=== PATIENT | female | born 1945 | race Caucasian/White ===

== ENCOUNTER 2020-03-06 17:11 | Inpatient (IN) | payer MEDICARE, SELFPAY ==
[2020-03-06] VITALS (33 sets, daily range): BP systolic 96–167; BP diastolic 59–88; PULSE 68–104; RESP 12–37; TEMP 36.4–38.1; O2SAT 88–99; BMI 32.5
--- NOTE | ~2020-03-06 | MR_ITS ---
EXAMINATION: MR brain/brain stem wo/w con DATE: 03/08/2020 15:08 INDICATION: Syncope. Frequent falls. Acute encephalopathy. TECHNIQUE: Magnetic resonance imaging (MRI) of the brain and brainstem was performed without intraven ous contrast. Sequences included sagittal and axial T1-weighted SE, axial diffusion-weighted FS SE, a xial T2*-weighted GRE and axial T2-weighted FLAIR. Apparent diffusion coefficient (ADC) maps were cre ated. The planned axial T1-weighted FSE, axial T2-weighted FSE and postcontrast axial and coronal T1 -weighted SE sequences were unable to be obtained as patient terminated the study prior to completion . COMPARISON: CT dated 03/06/2020 FINDINGS: Small to moderate-sized region of encephalomalacia with associated laminar necrosis at the medial lef t occipital lobe consistent with chronic infarct. Additional small old lacunar infarcts at the head o f the left caudate nucleus and at the left cerebellar hemisphere. There are no areas of restricted di ffusion to suggest acute infarction. No intracranial hemorrhage or abnormal intracranial mass lesion. There are scattered areas of nonspecific increased T2-weighted signal intensity in the cerebral whit e matter, predominantly involving the deep and periventricular white matter. Symmetric prominence of the sulci and ventricles consistent with moderate age-appropriate diffuse cerebral volume loss. There are no abnormal extra-axial fluid collections. Flow voids are seen in the cerebral arteries on the T 2-weighted sequences consistent with their expected patency. Mild mucosal thickening in the paranasal sinuses. Visualized orbits and soft tissues are otherwise unremarkable. IMPRESSION: 1. No acute infarct or other acute intracranial process. Unable to assess for enhancing lesions as aimee rhodes terminated the study prior to the final 2 noncontrast sequences and before administration of in travenous contrast which mildly limits evaluation. 2. 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 3. Age-related changes including moderate diffuse volume loss and moderate scattered periventricular predominant white matter T2 hyperintensity consistent with chronic small vessel ischemic disease. Reviewed, dictated and finalized at [facility]. PROCESS HELPER IMPRESSION: 1. No acute infarct or other acute intracranial process. Unable to assess for e nhancing lesions as patient terminated the study prior to the final [address] sequences and before administration of intravenous contrast which mildly powell its evaluation. 2. Old infarcts in the left occipital lobe, left caudate nucleus and left cereb ellum. 3. Age-related changes including moderate diffuse volume loss and moderate scat tered periventricular predominant white matter T2 hyperintensity consistent wit h chronic small vessel ischemic disease.
--- NOTE | ~2020-03-06 | US_ITS ---
EXAMINATION: US carotid duplex BI DATE: 03/07/2020 15:23 INDICATION: Syncope. TECHNIQUE: Grayscale, color Doppler, and pulsed Doppler images of the cervical carotid arteries were obtained. The degree of vessel stenosis is placed in one of the following categories: normal, <50%, 5 0-69%, >=70% but less than near-occlusion, near-occlusion, or total occlusion. Note that percent sten osis relative to normal distal artery lumen diameter is indirectly measured from velocity measurement s as described by Anuel, et al. Radiology 2003; 229:340-346. COMPARISON: None. FINDINGS: RIGHT: The right common carotid artery (CCA) peak systolic velocity (PSV) is 46 cm/s. The right internal car otid artery (ICA) PSV is 103 cm/s. The right ICA end-diastolic velocity (EDV) is 19 cm/s. The right I CA/CCA PSV ratio is 2.2. Grayscale and color Doppler images yield an estimate of <50% diameter reduct ion from plaque in the ICA. There is antegrade flow in the right vertebral artery. LEFT: The left CCA PSV is 79 cm/s. The left ICA PSV is 78 cm/s. The left ICA EDV is 21 cm/s. The left ICA/C CA PSV ratio is 1.0. Grayscale and color Doppler images yield an estimate of <50% diameter reduction from plaque in the ICA. There is antegrade flow in the left vertebral artery. IMPRESSION: 1. <50% stenosis in the right internal carotid artery. 2. <50% stenosis in the left internal carotid artery. Reviewed, dictated and finalized at location A. [employer]
--- NOTE | ~2020-03-06 | CT_ITS ---
EXAMINATION: CT brain wo con DATE: 03/06/2020 18:14 INDICATION: Fall with posterior head injury TECHNIQUE: Computed tomography (CT) of the head was performed without intravenous contrast. Sagittal and coronal reconstructions were performed. The mA was adjusted according to patient size. Iterative reconstruction technique was employed. The dose-length product was 681.00 mGy-cm. COMPARISON: head CT dated 02/10/2018 FINDINGS: No fracture. Small to moderate-sized region of encephalomalacia in the left occipital lobe consistent with chronic infarct. Additional small old infarcts at the head of the left caudate nucleus and in t he left cerebellar hemisphere. No acute intracranial hemorrhage, acute infarction or abnormal extra a xial fluid collection. There is moderate scattered white matter hypoattenuation consistent with chron ic small vessel ischemic disease. Symmetric prominence of the sulci and ventricles consistent with m oderate age-appropriate diffuse cerebral volume loss. No mass/mass effect. Mild mucosal thickening in the bilateral ethmoid, sphenoid and right maxillary sinuses. The orbits and mastoid air cells are no rmal. Intracranial calcified cerebral atherosclerosis is noted. IMPRESSION: 1. No fracture or acute intracranial process. 2. 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 3. Age-related changes including moderate diffuse on loss and moderate scattered white matter hypoatt enuation consistent with chronic small vessels ischemic disease. Reviewed, dictated and finalized at location . ERCIAL PLUMBER IMPRESSION: 1. No fracture or acute intracranial process. 2. Old infarcts in the left occipital lobe, left caudate nucleus and left cereb ellum. 3. Age-related changes including moderate diffuse on loss and moderate scattere d white matter hypoattenuation consistent with chronic small vessels ischemic d isease.
--- NOTE | ~2020-03-06 | XR_ITS ---
EXAMINATION: XR chest 1V portable DATE: 03/06/2020 17:54 INDICATION: Shortness of breath and weakness TECHNIQUE: frontal view of the chest was obtained. COMPARISON: None FINDINGS: Subtle opacities at the right midlung zone and at the left lung base. No pulmonary edema, pleural eff usion or pneumothorax. The cardiomediastinal silhouette is normal. Atherosclerotic thoracic aorta. IMPRESSION: 1. Subtle opacities in the right mid and left lower lung zones which could represent atelectasis and/ or pneumonia. Reviewed, dictated and finalized at location H. TH SAFETY INSTRUCTOR IMPRESSION: 1. Subtle opacities in the right mid and left lower lung zones which could repr esent atelectasis and/or pneumonia.
--- NOTE | ~2020-03-06 | XR_ITS ---
EXAMINATION: XR chest 2V DATE: 03/08/2020 14:22 INDICATION: Shortness of breath TECHNIQUE: frontal view of the chest was obtained. COMPARISON: Chest radiograph dated 03/06/2020 FINDINGS: Interval progression of prior opacities in the right mid and left lower lung zone with new opacities in the left mid and right lower lung zones. No pneumothorax or definitive pleural effusion. The cardi omediastinal silhouette is normal. Moderate thoracic spondylosis. IMPRESSION: 1. Worsening bilateral lung disease which could represent pneumonia, ulnar edema, aspiration, atelect asis or some combination thereof. Reviewed, dictated and finalized at location H. T ROLLER ASSEMBLER IMPRESSION: 1. Worsening bilateral lung disease which could represent pneumonia, ulnar sajan a, aspiration, atelectasis or some combination thereof.
--- NOTE | 2020-03-06 17:19 | ECG_ITS ---
Measurements Intervals [place] Rate: 90 P: 36 IA: 149 QRS: -27 QRSD: 98 T: 218 QT: 364 QTc: 446 Interpretive Statements SINUS RHYTHM LEFT VENTRICULAR HYPERTROPHY AND ST-T CHANGE POOR R WAVE PROGRESSION, ANTERIOR LEADS BORDERLINE T WAVE ABNORMALITY- INF/LAT LEADS BASELINE ARTIFACT- II, III, AVF, V1, V3 BORDERLINE ECG Electronically Signed On 03-06-2020 20:20:45 ART THERAPIST by Ryan Skaggs D.O.
--- NOTE | 2020-03-06 17:23 | ED.GENADULT ---
HPI - General Adult General Chief complaint: Shortness of Breath/Dyspnea Stated complaint: sob Time Seen by Provider: 03/06/20 17:14 Source: EMS Mode of arrival: EMS Limitations: clinical condition History of Present Illness HPI narrative: Patient is a 74-year-old female who presents from home per EMS EMS note that the patient has been sick presents with fever and wet breath sounds patient has been at home where she lives with her son who is a truck safety inspector patient reportedly was found on the ground by son yesterday has had increasing weakness and confusion EMS was contacted and instructed to bring the patient to the emergency department on arrival she is in the room appears to be ill with coarse breath sounds and fever patient is unable to fully answer questions appropriately and is alert and oriented to self and very weak at this time. Patient with history of diabetes and hypertension per EMS Related Data Allergies Allergy/AdvReac Type Severity Reaction Status Date / Time acetaminophen Allergy Unknown Rash Verified 02/10/18 14:30 Penicillins Allergy Unknown Rash Verified 02/10/18 14:30 Review of Systems Review of Systems: All systems reviewed & are unremarkable except as noted in HPI and below PMFSH Past Medical History Medical History (Updated 03/06/20 @ 17:26 by Brett Wooten PA-C) Diabetes mellitus Hypertension Social History Social History (Updated 03/06/20 @ 17:26 by Brett Wooten PA-C) Smoking status: Unknown if ever smoked Exam Narrative: Exam Narrative: GENERAL: Ill l-appearing, obese, and in no acute distress. HEAD: Normocephalic, atraumatic. EYES: PERRLA and EOMI. ENT: Nares clear, no rhinorrhea or epistaxis. Mucous membranes moist. NECK: Supple. No adenopathy or masses. No carotid bruits or JVD CHEST: Diminished auscultation. No respiratory distress. Crackles in the lung bases HEART: Regular rate and rhythm. No murmur heard. Normal peripheral pulses. ABDOMEN: Soft, nontender, nondistended EXTREMITIES: Normal range of motion. No edema. SKIN: Warm, dry, no rash. NEURO: No focal deficits. Alert and oriented to self PSYCH: Normal mood and affect.
--- NOTE | 2020-03-06 17:28 | ED.GENADULT ---
HPI - General Adult General Chief complaint: Shortness of Breath/Dyspnea Stated complaint: sob Time Seen by Provider: 03/06/20 17:14 Source: EMS Mode of arrival: EMS Limitations: clinical condition History of Present Illness HPI narrative: Patient is a 74-year-old female who presents for EMS for evaluation of weakness having fallen yesterday noted to have coarse breath sounds and fever patient lives at home with her son who is a forklift truck mechanic with possible sick contacts but is not currently sick per EMS patient with history of diabetes and hypertension on arrival patient is ill-appearing weak and has trouble answering questions is alert and oriented x1. Patient was found on the ground yesterday when her son arrived home. Patient has continued to feel weak and fever and was sent in by son Related Data Home Medications Medication Instructions Recorded Confirmed allopurinol 300 mg TID 03/06/20 citalopram 40 mg DAILY 03/06/20 glipizide 5 mg BID 03/06/20 insulin glargine [Basaglar KwikPen SUBCUT 03/06/20 U-100 Insulin] liraglutide [Victoza 3-Timothy] mg SUBCUT 03/06/20 losartan 100 mg DAILY 03/06/20 metformin 1,000 mg BID 03/06/20 03/06/20 omeprazole 20 mg DAILY 03/06/20 03/06/20 simvastatin 20 mg DAILY 03/06/20 03/06/20 Allergies Allergy/AdvReac Type Severity Reaction Status Date / Time acetaminophen Allergy Unknown Rash Verified 03/06/20 19:34 Penicillins Allergy Unknown Rash Verified 03/06/20 19:34 Review of Systems Review of Systems: ROS unobtainable: Yes unobtainable due to medical condition [facility] Past Medical History Medical History Diabetes mellitus Hypertension Social History Social History Smoking status: Unknown if ever smoked Exam Narrative: Exam Narrative: GENERAL: Ill l-appearing, obese, and in no acute distress. HEAD: Normocephalic, atraumatic. EYES: PERRLA and EOMI. ENT: Nares clear, no rhinorrhea or epistaxis. Mucous membranes dry. NECK: Supple. No adenopathy or masses. CHEST: Clear to auscultation. No respiratory distress. No wheezes rales or rhonchi HEART: Regular rate and rhythm. No murmur heard. Normal peripheral pulses. ABDOMEN: Soft, nontender, nondistended EXTREMITIES: Normal range of motion. No edema. SKIN: Warm, dry, no rash. NEURO: No focal deficits. Alert and oriented to self. PSYCH: Normal mood and affect. Course Course Emergency Course: Patient came and after having had a syncopal episode with weakness patient found to have urinary tract infection and dehydration no old blood work was able to be referenced patient with possible acute kidney injury has been hydrated given IV antibiotic in the emergency department hemodynamically stable will be brought in for further evaluation placed on medical telemetry floor Consultations Consultation #1: Case discussed with the hospitalist service who has agreed to accept the patient Date: 03/06/20 Time: 20:12 Vital Signs Vital signs: Vital Signs Pulse Rate 95 03/06/20 17:14 Respiratory Rate 36 H 03/06/20 17:14 Pulse Oximetry 96 03/06/20 17:14 Temperature 100.5 F H 03/06/20 18:10 Pulse Rate 81 03/06/20 19:31 Respiratory Rate 23 H 03/06/20 19:31 Blood Pressure 116/66 03/06/20 19:31 Pulse Oximetry 94 03/06/20 19:31 Medical Decision Making MDM Narrative Medical decision making narrative: Patient with syncope urinary tract infection acute kidney injury and weakness will be brought into the hospital for this patient has been hydrated given IV antibiotic is hemodynamically stable nontoxic-appearing Vital Signs Vital Signs: Vital Signs Pulse Rate 95 03/06/20 17:14 Respiratory Rate 36 H 03/06/20 17:14 Pulse Oximetry 96 03/06/20 17:14 Temperature 100.5 F H 03/06/20 18:10 Pulse Rate 81 03/06/20 19:31 Respiratory Rate 23 H 03/06/20 19:31 Blood Pressure 116/66 03/06/20 19
[2020-03-06] MEDS: SODIUM CHLORIDE 0.9% IV 500 ML 999 ML IV CONT (17:50)
[2020-03-06 17:57] LABS: Basophils Percent Auto 0.4 % (0.2-1.2); Hematocrit 44.6 % (37.0-47.0); Hemoglobin 14.9 g/dL (12.0-15.0); Immature Granulocyte Absolute 0.01 K/mm3 (0.00-0.031); Immature Granulocyte Percent A 0.2 % (0-0.5); Lymphocytes Percent Auto 30.7 % (18.3-44.2); Mean Corpuscular HGB Conc 33.4 g/dl (32-36); Mean Corpuscular Hemoglobin 29.5 pg (26-34); Mean Corpuscular Volume 88.3 fl (80-100); Mean Platelet Volume 9.7 fl (7.4-10.4); Monocytes Absolute Auto 0.9 K/mm3 (0.1-0.6); Monocytes Percent Auto 19.5 % (2.6-8.5); Neutrophils Absolute Auto 2.2 K/mm3 (1.3-6.7); Neutrophils Percent Auto 49.2 % (45.5-73.1); Platelet Count Result 263 k/mm3 (150-375); Red Blood Count 5.05 M/mm3 (4.2-5.4); Red Cell Distribution Width 12.8 % (11.5-14.5); White Blood Count 4.6 K/mm3 (4.5-10.0)
[2020-03-06 18:04] LABS: INR 0.9
[2020-03-06 18:05] LABS: Lactic Acid Reflex 2.2 mmol/L (0.7-2.1)
[2020-03-06 18:05] LABS: Partial Thromboplastin Time 28.3 SECONDS (22.3-36.8)
[2020-03-06 18:06] LABS: Alanine Aminotransferase 19 U/L (4-35); Albumin Level 4.2 g/dL (3.5-5.1); Alkaline Phosphatase 71 U/L (38-126); Anion Gap 13 mmol/L (8-16); Aspartate Amino Transferase 31 U/L (14-36); Bilirubin,Total 0.4 mg/dL (0.2-1.3); Blood Urea Nitrogen 39 mg/dL (7-17); CRP 4.4 mg/dL (<1.0); Calcium 8.9 mg/dL (8.4-10.2); Carbon Dioxide 21 mmol/L (22-30); Chloride 105 mmol/L (98-107); Estimated Glomerular Filt Rate 34; Glucose 179 mg/dL (65-105); Potassium 4.4 mmol/L (3.4-5.0); Sodium 139 mmol/L (137-145)
[2020-03-06] MEDS: IBUPROFEN IV 400 MG in SODIUM CHLORIDE 0.9% IV 100 ML 200 MG IVPB (18:10)
[2020-03-06 18:41] LABS: Alveolar/Arterial O2 Gradient 40.9 mmHg; Base Excess ABG -4.1 mEq/l (+/-2.0); Fractional Inspired Oxygen 21 %; HCO3 ABG 19.7 mEq/l (22.0-26.0); Methemoglobin ABG 0.3 %THb (0-1.5); Oxygen Saturation ABG 94.2 % (95.0-100.0); Oxyhemoglobin 92.6 % THb (90.0-100.0); PCO2 ABG 32.6 mmHg (35.0-45.0); PO2 ABG 69.8 mmHg (80.0-100.0); PO2 FiO2 Ratio Arterial Blood 3.32 %; Reduced Hemoglobin 7.1 %THb (0-5.0); Total Hemoglobin 14.6 g/dL (12.0-18.0); pH ABG 7.399 (7.350-7.450)
[2020-03-06 18:42] LABS: Device ROOM AIR; Site Drawn LEFT BRACHIAL
[2020-03-06 19:23] LABS: Creatine Kinase 50 U/L (30-135)
[2020-03-06] MEDS: SODIUM CHLORIDE 0.9% IV 1,000 ML 999 ML IV CONT (19:25)
[2020-03-06 19:33] LABS: NT Pro B Type Natriuretic Pept 1070 PG/ML (5-100)
--- NOTE | 2020-03-06 19:37 | PC.NURSE ---
IVF started. flu swab done. home meds updated. patient's son in room. patient at same neuro status. A/O x 1-2. no distress. on recyclable products sorter. will bladder scan patient after IVF done prior to 2nd straight cath. both aware of plan.
[2020-03-06 19:41] LABS: Add Urine Microscopic? YES; Appearance Urine Cloudy (Clear); Bacteria Urine 4+ /hpf; Bilirubin Urine Negative (Negative); Blood Urine 1+ (Negative); Color Urine Yellow (Yellow); Glucose Urine UA Negative (Negative); Ketones Urine Negative (Negative); Leukocyte Esterase Ur 2+ LEU/UL (Negative); Mucus Urine Heavy /lpf; Nitrate Urine Negative (Negative); Protein Urine 2+ mg/dL (Negative); Specific Grav Ur 1.017 (1.001-1.035); Squamous Epithelial Cell Urine Rare /hpf (Few); Urobilinogen Urine Negative mg/dL (<2.0); WBC Clumps Urine Present /HPF; WBC Urine 51-75 /hpf
--- NOTE | 2020-03-06 19:45 | PC.NURSE ---
all tests resulted. planning for admission. waiting for bed assignment upstairs.
[2020-03-06] MEDS: ONDANSETRON INJ 4 MG/2 ML VIAL IV PUSH (20:30)
[2020-03-06 20:50] LABS: Reflex Lactic Acid Yes or No Add Lactic
--- NOTE | 2020-03-06 20:50 | PM.IMHP ---
H&P: HPI History of Present Illness Date/Time: 03/06/20 20:50 Chief complaint: Syncope/acute kidney injury/dehydration/UTI Narrative: This is a pleasant 74-year-old obese diabetic female who is known to live with her son and who has recently had multiple falls presented to the hospital for evaluation of generalized weakness, acute confusion, and possible syncopal episode yesterday. The patient herself is somewhat confused tonight but is oriented to herself. Her son tells me that yesterday while he was at work she fell and it is unknown if she passed out or not but apparently she spent 8 hours on the ground as she was too weak to get herself up. She has had multiple recent falls and every time she fall she is too weak to pull herself up and her son is also having difficulty getting her up off the floor. Her son reports that she had fever about 4 days ago with diaphoresis when the fever broke. The patient has a chronic cough which has not changed recently. Tonight on my encounter with the patient she denies any headache, blurry vision, shortness of breath, wheezing, chest pain, palpitations, abdominal pain, nausea, vomiting, diarrhea, rectal bleeding, lower extremity swelling, or focal neurological deficits. The patient was evaluated emergency room this evening and found to be septic with tachypnea and an elevated lactic acid of 2.2. She was also found to be dehydrated, in acute renal failure, with a grossly abnormal urinalysis. The patient was treated with IV fluids and IV antibiotics. Brain CT obtained in the ER was unremarkable for acute pathology. We been asked admit the patient to the hospital for further care and she has no other complaints at this time. The patient was swabbed for COVID-19. Review of Systems Review of Systems: All systems reviewed & are unremarkable except as noted in HPI and below PMFSH Past Medical History Medical History Diabetes mellitus GERD (gastroesophageal reflux disease) Gout Hypertension Family History Family History Father Muscular dystrophy Social History Social History Smoking status: Unknown if ever smoked Alcohol intake: never Substance use: never Gender identity (if verbalized by the patient): Female Spiritual care concerns: No Comments Past surgical history is reviewed and noncontributory. Meds Home Medications and Allergies Home Medications Medication Instructions Recorded Confirmed Type allopurinol 300 mg PO DAILY 03/06/20 03/06/20 History aspirin [Adult Low Dose Aspirin] 81 mg PO DAILY 03/06/20 03/06/20 History citalopram 40 mg PO DAILY 03/06/20 03/06/20 History glipizide 5 mg PO DAILY 03/06/20 03/06/20 History insulin glargine [Basaglar KwikPen 40 unit SUBCUT HS 03/06/20 03/06/20 History U-100 Insulin] liraglutide [Victoza 3-Timothy] 0.6 mg SUBCUT HS 03/06/20 03/06/20 History losartan 100 mg PO DAILY 03/06/20 03/06/20 History metformin 1,000 mg PO BID 03/06/20 03/06/20 History omeprazole 20 mg PO DAILY 03/06/20 03/06/20 History simvastatin 20 mg PO DAILY 03/06/20 03/06/20 History tolterodine 2 mg PO DAILY 03/06/20 03/06/20 History venlafaxine 37.5 mg PO DAILY 03/06/20 03/06/20 History Allergies Allergy/AdvReac Type Severity Reaction Status Date / Time acetaminophen Allergy Unknown Rash Verified 03/07/20 00:37 Penicillins Allergy Unknown Rash Verified 03/07/20 00:37 Vital Signs Vital Signs - 24 hr 03/06/20 17:14 03/06/20 17:15 03/06/20 17:16 Temperature Pulse Rate 95 94 91 Respiratory Rate 36 H 37 H 37 H Blood Pressure 167/80 H Pulse Oximetry 96 96 96 03/06/20 17:20 03/06/20 17:30 03/06/20 17:43 Temperature Pulse Rate 90 84 87 Respiratory Rate 30 H 23 H Blood Pressure 164/88 H Pulse Oximetry 96 03/06/20 17:57 03/06/20 18:00 03/06/20 18:10 Temperature 38.1 C H Pulse
[2020-03-06] MEDS: FAMOTIDINE 20 MG/2 ML VIAL IV PUSH (21:33)
--- NOTE | 2020-03-06 21:40 | PC.NURSE ---
report given to Anne MORIN on 3rd floor. patient to transport to [facility] via film technician and stretcher. more alert. no needs prior to transfer.
[2020-03-06 23:15] LABS: Lactic Acid 0.9 mmol/L (0.7-2.1)
[2020-03-06] MEDS: LACTATED RINGERS 1,000 ML 100 ML IV CONT (23:26)
[2020-03-07] VITALS (10 sets, daily range): BP systolic 110–179; BP diastolic 49–95; PULSE 60–110; RESP 16–26; TEMP 36.1–38.3; O2SAT 90–98; BMI 32.5
[2020-03-07] MEDS: IBUPROFEN 400 MG TABLET PO (05:13)
--- NOTE | 2020-03-07 05:41 | PC.NURSE ---
This patient, Akbar Elizondo, was admitted to [facility] Surg Room 316-01 at 2150. Patient/family oriented to hospital policies and general routines including ID bracelet, bed and alarms, visiting hours, pain management, procedures, bathroom and other care routines, personal items, smoking policy, room service/diet, and visiting hours. Information on how to activate the Rapid Response Team has been discussed. Patient/Family are encouraged to report perceived risks to care and to ask questions if they do not understand what they are told or what they should do.
[2020-03-07 06:34] LABS: Basophils Percent Auto 0.2 % (0.2-1.2); Hematocrit 36.1 % (37.0-47.0); Hemoglobin 11.9 g/dL (12.0-15.0); Immature Granulocyte Absolute 0.02 K/mm3 (0.00-0.031); Immature Granulocyte Percent A 0.4 % (0-0.5); Lymphocytes Absolute Auto 1.03 K/mm3 (0.9-3.2); Lymphocytes Percent Auto 22.2 % (18.3-44.2); Mean Platelet Volume 9.9 fl (7.4-10.4); Monocytes Absolute Auto 0.6 K/mm3 (0.1-0.6); Monocytes Percent Auto 13.1 % (2.6-8.5); Neutrophils Percent Auto 64.1 % (45.5-73.1); Platelet Count Result 186 k/mm3 (150-375); Red Cell Distribution Width 12.7 % (11.5-14.5); White Blood Count 4.6 K/mm3 (4.5-10.0)
[2020-03-07 06:43] LABS: Anion Gap 8 mmol/L (8-16); Blood Urea Nitrogen 35 mg/dL (7-17); Calcium 7.9 mg/dL (8.4-10.2); Carbon Dioxide 22 mmol/L (22-30); Chloride 109 mmol/L (98-107); Estimated CRCL calculation 36 ml/min; Estimated Glomerular Filt Rate 40; Glucose 129 mg/dL (65-105); Potassium 4.1 mmol/L (3.4-5.0); Sodium 139 mmol/L (137-145)
[2020-03-07 07:47] LABS: Folic Acid 6.9 ng/mL (2.76->20)
[2020-03-07] MEDS: CITALOPRAM HYDROBROMIDE 20 MG TABLET 40 MG PO (09:54)
[2020-03-07] MEDS: SIMVASTATIN 20 MG TABLET PO (09:54)
[2020-03-07] MEDS: ASPIRIN 81 MG CHEWABLE TABLET PO (09:54)
[2020-03-07] MEDS: PANTOPRAZOLE 40 MG TABLET PO (09:54)
[2020-03-07] MEDS: allopurinoL 300 MG TABLET PO (09:54)
[2020-03-07] MEDS: FAMOTIDINE 20 MG/2 ML VIAL IV PUSH ×2 (09:55→20:50)
[2020-03-07] MEDS: LACTATED RINGERS 1,000 ML 100 ML IV CONT ×2 (09:58→20:50)
[2020-03-07 10:08] LABS: Glucose Point of Care 115 (65-105)
--- NOTE | 2020-03-07 12:59 | PM.IMPN ---
Progress Note: A&P Assessment and Plan (1) Acute encephalopathy: Code(s): G93.40 - Encephalopathy, unspecified Status: Acute Assessment and Plan: [place] to be likely secondary to UTI and dehydration. CT brain unremarkable for acute intracranial process, although old infarcts in the left occipital lobe, left caudate nucleus and left cerebellum noted as well; this was not seen on brain CT 2 years ago. TSH, B12, Folate WNL. Will continue with neurochecks. Continue treatment for UTI. Given Ct findings of old CVA that were not shown on imaging 2 years ago, it may be prudent to proceed with CVA work up with brain MRI, carotid duplex, and echo. Will obtain Lipid panel as well Consider Neuro consult if no improvement (2) Urinary tract infection: Code(s): N39.0 - Urinary tract infection, site not specified Status: Acute Assessment and Plan: U suspicious for UTI. UCx pending. IV Rocephin started from the ED which she appears to be tolerating well given penicillin allergy Continue IV antibiotics. Tailor antibiotics to culture Avoid acetaminophen as the patient has a known allergy to this. Use Ibuprofen sparingly given JOSE ALFREDO Monitor for improvement (3) Acute kidney injury: Code(s): N17.9 - Acute kidney failure, unspecified Status: Acute Assessment and Plan: Cr 1.50 on arrival; improved to 1.30 today. Likely pre renal and secondary to dehydration. Monitor renal function. Continue IV fluids Renally dose medications. Avoid nephrotoxic agents. (4) Dehydration: Code(s): E86.0 - Dehydration Status: Acute Assessment and Plan: Likely poor PO intake secondary to suspected UTI Continue IV fluids for now. D/c if having improved PO intake Monitor urine output and vital signs closely. (5) Elevated lactic acid level: Code(s): R79.89 - Other specified abnormal findings of blood chemistry Status: Resolved Assessment and Plan: Likely secondary dehydration and UTI. Lactic Acid now WNL (6) GERD (gastroesophageal reflux disease): Qualifiers: Esophagitis presence: esophagitis presence not specified Qualified Code(s): K21.9 - Gastro-esophageal reflux disease without esophagitis Code(s): K21.9 - Gastro-esophageal reflux disease without esophagitis Status: Chronic Assessment and Plan: Continue home PPI therapy (7) Fall: Qualifiers: Encounter type: initial encounter Qualified Code(s): W19.XXXA - Unspecified fall, initial encounter Code(s): W19.XXXA - Unspecified fall, initial encounter Status: Acute Assessment and Plan: Patient's acute falls likely secondary to acute encephalopathy and UTI as well as possible dehydration vs less likely acute stroke as noted above. It is unknown whether not the patient actually syncopized. The patient has no focal neurological deficits at this time. Continue Telemetry. Obtain Echo Continue treatment of UTI. Check orthostatic vitals. Continue IV fluids. PT OT (8) Diabetes mellitus: Qualifiers: Diabetes mellitus type: type 2 Diabetes mellitus chaplain resident insulin use: with chaplain resident use Diabetes mellitus complication status: without complication Qualified Code(s): E11.9 - Type 2 diabetes mellitus without complications; Z79.4 - bench chemist (current) use of insulin Code(s): E11.9 - Type 2 diabetes mellitus without complications Status: Chronic Assessment and Plan: BGL well controlled in low 100s today Accu-Cheks, sliding scale insulin coverage, hypoglycemia protocol. Continue home insulin Hold glipizide, victoza, metformin for now
[2020-03-07] MEDS: INSULIN ASPART (*BKC) 100 UNITS/ML SUB-Q (13:06)
[2020-03-07 13:33] LABS: Glucose Point of Care 223 (65-105)
[2020-03-07] MEDS: ONDANSETRON INJ 4 MG/2 ML VIAL IV PUSH (17:58)
--- NOTE | 2020-03-07 18:03 | PC.NURSE ---
Patient found to have emesis on her face and gown. Vital signs and glucose obtained. 178/87, 104, 26, 90% on room air, 100.3, BS 131. Dr. Go Notified. Patient given Zofran for nausea. See MAR. Per Dr. Go, continue to monitor temperature. Pt unable to have Tylenol due to allergy. Patient A&Ox1.
[2020-03-07 18:48] LABS: Glucose Point of Care 131 (65-105)
[2020-03-07 19:25] LABS: SARS-CoV-2 RNA PCR Positive
[2020-03-07] MEDS: INSULIN GLARGINE (*BKC) 100 UNITS/ML 40 UNITS SUB-Q (20:49)
[2020-03-07 21:27] LABS: Glucose Point of Care 172 (65-105)
[2020-03-07] MEDS: hydrALAZINE HCL 20 MG/ML VIAL 10 MG IV PUSH (22:26)
[2020-03-08] VITALS (7 sets, daily range): BP systolic 118–180; BP diastolic 50–70; PULSE 80–115; RESP 18–20; TEMP 36.5–38; O2SAT 92–97
[2020-03-08 06:36] LABS: Basophils Percent Auto 0.1 % (0.2-1.2); Hematocrit 39.4 % (37.0-47.0); Immature Granulocyte Absolute 0.07 K/mm3 (0.00-0.031); Immature Granulocyte Percent A 0.9 % (0-0.5); Lymphocytes Absolute Auto 1.35 K/mm3 (0.9-3.2); Lymphocytes Percent Auto 18.2 % (18.3-44.2); Mean Corpuscular Hemoglobin 29.3 pg (26-34); Mean Corpuscular Volume 88.9 fl (80-100); Mean Platelet Volume 9.5 fl (7.4-10.4); Monocytes Absolute Auto 0.7 K/mm3 (0.1-0.6); Neutrophils Absolute Auto 5.3 K/mm3 (1.3-6.7); Neutrophils Percent Auto 71.8 % (45.5-73.1); Platelet Count Result 201 k/mm3 (150-375); Red Blood Count 4.43 M/mm3 (4.2-5.4); Red Cell Distribution Width 12.4 % (11.5-14.5); White Blood Count 7.4 K/mm3 (4.5-10.0)
[2020-03-08 07:41] LABS: Anion Gap 9 mmol/L (8-16); Blood Urea Nitrogen 21 mg/dL (7-17); Calcium 8.2 mg/dL (8.4-10.2); Carbon Dioxide 24 mmol/L (22-30); Chloride 107 mmol/L (98-107); Cholesterol 164 mg/dL (0-200); Estimated CRCL calculation 38 ml/min; Estimated Glomerular Filt Rate 44; Glucose 94 mg/dL (65-105); HDL Direct 23 mg/dL; Magnesium 1.6 mg/dL (1.6-2.3); Potassium 3.9 mmol/L (3.4-5.0); Sodium 140 mmol/L (137-145); Triglycerides 163 mg/dL (<150)
[2020-03-08 07:49] LABS: LDL Cholesterol Direct 106 mg/dL
[2020-03-08 07:58] LABS: Hemoglobin A1C 6.6 % (<5.7)
[2020-03-08] MEDS: LACTATED RINGERS 1,000 ML 100 ML IV CONT ×2 (09:17→20:01)
[2020-03-08] MEDS: ASPIRIN 81 MG CHEWABLE TABLET PO (09:18)
[2020-03-08] MEDS: CITALOPRAM HYDROBROMIDE 20 MG TABLET 40 MG PO (09:18)
[2020-03-08] MEDS: SIMVASTATIN 20 MG TABLET PO (09:18)
[2020-03-08] MEDS: allopurinoL 300 MG TABLET PO (09:19)
[2020-03-08] MEDS: PANTOPRAZOLE 40 MG TABLET PO (09:19)
[2020-03-08] MEDS: FAMOTIDINE 20 MG/2 ML VIAL IV PUSH ×2 (09:19→21:53)
[2020-03-08 10:07] LABS: Glucose Point of Care 89 (65-105)
--- NOTE | 2020-03-08 12:15 | PM.IMPN ---
Progress Note: A&P Assessment and Plan (1) Acute encephalopathy: Code(s): G93.40 - Encephalopathy, unspecified Status: Acute Assessment and Plan: With now apparent expressive aphasia. [place] to be likely secondary to UTI and dehydration vs CVA vs COVID infection. She was found to have vomit on her last night. 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 TSH, B12, Folate WNL. Attempted to call son (with permission) for more information, but number dialed went straight to . Lipid panel grossly unremarkable. Tele shows sinus rhythm with occasional PACs; artifact noted. Will continue with neurochecks. Continue Tele Neurology consulted and appreciate recommendations Proceed with Echo and brain MRI today to r/o CVA. Will do ST eval and treat for expressive aphasia; Bedside swallow eval as well given reports of emesis yesterday. Will make NPO until rec from ST Continue treatment for UTI. Monitor closely (2) Urinary tract infection: Code(s): N39.0 - Urinary tract infection, site not specified Status: Acute Assessment and Plan: U suspicious for UTI. UCx shows Kleb pneum sensitive to Rocephin. IV Rocephin started from the ED which she appears to be tolerating well given penicillin allergy Continue IV antibiotics for now Avoid acetaminophen as the patient has a known allergy to this. Use Ibuprofen sparingly given JOSE ALFREDO Monitor for improvement (3) Sepsis: Code(s): A41.9 - Sepsis, unspecified organism Status: Acute Assessment and Plan: Met SIRS criteria on arrival with tmax of 100.5 and tachypnea with UTI as suspected source; this appears to have resolved/improved. Lactic acid elevated but resolved with IV fluids. One BCx set growing coag neg staph in aerobic and anaerobic bottles with second set showing NGTD. UCx growing Kleb pneumoniae sensitive to Rocephin. Initially placed on vanc this morning prior to identification, but given one of two sets growing coag neg staph, it is felt likely to be a contaminate and vanc was discontinued. Continue treatment for suspected UTI as above Monitor for change in status (4) COVID-19: Code(s): U07.1 - COVID-19 Status: Acute Assessment and Plan: The patient has been swabbed for COVID-19 and is positive. She apparently was satting in low 90s last evening but is now having adequate saturations on RA. Continue droplet isolation. Continue supportive care. O2 as tolerated (5) Acute kidney injury: Code(s): N17.9 - Acute kidney failure, unspecified Status: Acute Assessment and Plan: Cr 1.50 on arrival; improved to 1.20 today. Likely pre renal and secondary to dehydration. Monitor renal function. Continue IV fluids as patient NPO and having poor PO intake Renally dose medications. Avoid nephrotoxic agents if possible NSAIDS sparingly (6) Dehydration: Code(s): E86.0 - Dehydration Status: Acute Assessment and Plan: Likely poor PO intake secondary to suspected UTI Continue IV fluids for now Monitor urine output and vital signs closely. (7) Elevated lactic acid level: Code(s): R79.89 - Other specified abnormal findings of blood chemistry Status: Resolved Assessment and Plan: Likely secondary dehydration and UTI vs Sepsis. Lactic Acid now WNL (8) GERD (gastroesophageal reflux disease): Qualifiers: Esophagitis presence: esophagitis presence not s
[2020-03-08 12:42] LABS: Glucose Point of Care 187 (65-105)
--- NOTE | 2020-03-08 13:29 | WPDNEURCNPN ---
Assessment and Plan Assessment and plan (1) Sepsis: Code(s): A41.9 - Sepsis, unspecified organism Status: Acute (2) Diabetes mellitus: Qualifiers: Diabetes mellitus complication status: without complication Diabetes mellitus long term care social worker insulin use: with mcfp use Diabetes mellitus type: type 2 Qualified Code(s): E11.9 - Type 2 diabetes mellitus without complications; Z79.4 - termite control servicer (current) use of insulin Code(s): E11.9 - Type 2 diabetes mellitus without complications Status: Chronic (3) Hypertension: Qualifiers: Hypertension type: unspecified Qualified Code(s): I10 - Essential (primary) hypertension Code(s): I10 - Essential (primary) hypertension Status: Chronic (4) Suspected 2019 novel coronavirus infection: Code(s): Z20.828 - Contact with and (suspected) exposure to other viral communicable diseases Status: Acute (5) Stroke: Code(s): I63.9 - Cerebral infarction, unspecified Status: Acute Additional Plan considering Doppler is neck, the CT scan of the head documents old strokes she will benefit from the CTA to document any larger -vessel disease in the meantime she is being continued on ceftriaxone insulin aspirin and simvastatin Consult date: 03/10/20 Time Seen: 13:15 HPI: Akbar Elizondo is a 74 year old [id number] years old right-handed female has been admitted to [facility] for the complaints of syncopal episode with the history of acute kidney injury and subsequent dehydration and also UTI. As per the information available patient lives with her son and recently has had multiple falls for which she had come to the hospital for the complaints of generalized weakness with confusion yesterday while the son was at work she fell and spent apparently 8 hours on the ground as she was too weak to get herself up she has had multiple recent falls her son reported that she has had fever for almost 4 days with diaphoresis she does have history of chronic cough, the patient was evaluated in the emergency room and was found to be septic with tachypnea and lactic acid of 2.2 in addition to be dehydrated and in acute renal failure for which she required intravenous fluids and intravenous antibiotics the 1st CT scan in the emergency room was normal with no evidence of bleed she was swabbed for the COVID-19. routine lab reveals a normal CBC BUN 21 with creatinine 1.20 hemoglobin A1c 6.6 and calcium 8.2 carotid Doppler less than 50% stenosis CT scan of the brain with old infarct in left occipital lobe left caudate nucleus and left cerebellum along with the age related changes with moderate diffuse loss and scattered white matter hypoattenuation Review of Systems Review of Systems: All systems reviewed & are unremarkable except as noted in HPI and below PMFSH Past Medical History Medical History Diabetes mellitus GERD (gastroesophageal reflux disease) Gout Hypertension Family History Family History Father Muscular dystrophy Social History Social History Smoking status: Unknown if ever smoked Alcohol intake: never Substance use: never Gender identity (if verbalized by the patient): Female Spiritual care concerns: No Meds Home Medications and Allergies Home Medications Medication Instructions Recorded Confirmed Type allopurinol 300 mg PO DAILY 03/06/20 03/06/20 History aspirin [Adult Low Dose Aspirin] 81 mg PO DAILY 03/06/20 03/06/20 History citalopram 40 mg PO DAILY 03/06/20 03/06/20 History glipizide 5 mg PO DAILY 03/06/20 03/06/20 History insulin glargine [Basaglar KwikPen 40 unit SUBCUT HS 03/06/20 03/06/20 History U-100 Insulin] liraglutide [Victoza 3-Timothy] 0.6 mg SUBCUT HS 03/06/20 03/06/20 History losartan 100 mg PO DAILY 03/06/20 03/06/20 History metformin 1,000 mg
[2020-03-08] MEDS: ONDANSETRON INJ 4 MG/2 ML VIAL IV PUSH (14:06)
[2020-03-08 18:17] LABS: Glucose Point of Care 122 (65-105)
[2020-03-08] MEDS: INSULIN GLARGINE (*BKC) 100 UNITS/ML 40 UNITS SUB-Q (22:47)
[2020-03-08 22:52] LABS: Glucose Point of Care 135 (65-105)
[2020-03-09] VITALS (8 sets, daily range): BP systolic 146–158; BP diastolic 60–93; PULSE 72–103; RESP 16–20; TEMP 35.7–38.1; O2SAT 93–100
[2020-03-09] MEDS: IBUPROFEN 400 MG TABLET PO (01:18)
[2020-03-09 07:19] LABS: Basophils Percent Auto 0.2 % (0.2-1.2); Hematocrit 32.4 % (37.0-47.0); Hemoglobin 10.7 g/dL (12.0-15.0); Immature Granulocyte Absolute 0.04 K/mm3 (0.00-0.031); Immature Granulocyte Percent A 0.7 % (0-0.5); Lymphocytes Absolute Auto 1.38 K/mm3 (0.9-3.2); Lymphocytes Percent Auto 22.9 % (18.3-44.2); Mean Corpuscular Hemoglobin 28.6 pg (26-34); Mean Corpuscular Volume 86.6 fl (80-100); Mean Platelet Volume 9.7 fl (7.4-10.4); Monocytes Absolute Auto 0.5 K/mm3 (0.1-0.6); Monocytes Percent Auto 8.5 % (2.6-8.5); Neutrophils Absolute Auto 4.1 K/mm3 (1.3-6.7); Neutrophils Percent Auto 67.7 % (45.5-73.1); Platelet Count Result 181 k/mm3 (150-375); Red Blood Count 3.74 M/mm3 (4.2-5.4); Red Cell Distribution Width 12.2 % (11.5-14.5)
[2020-03-09 07:38] LABS: Anion Gap 5 mmol/L (8-16); Blood Urea Nitrogen 23 mg/dL (7-17); Calcium 7.8 mg/dL (8.4-10.2); Carbon Dioxide 27 mmol/L (22-30); Chloride 103 mmol/L (98-107); Estimated CRCL calculation 36 ml/min; Estimated Glomerular Filt Rate 40; Glucose 103 mg/dL (65-105); Magnesium 1.6 mg/dL (1.6-2.3); Potassium 4.1 mmol/L (3.4-5.0); Sodium 135 mmol/L (137-145)
[2020-03-09 08:21] LABS: Glucose Point of Care 79 (65-105)
[2020-03-09] MEDS: LACTATED RINGERS 1,000 ML 100 ML IV CONT (09:32)
[2020-03-09] MEDS: CITALOPRAM HYDROBROMIDE 20 MG TABLET 40 MG PO (09:33)
[2020-03-09] MEDS: ASPIRIN 81 MG CHEWABLE TABLET PO (09:33)
[2020-03-09] MEDS: allopurinoL 300 MG TABLET PO (09:33)
[2020-03-09] MEDS: FAMOTIDINE 20 MG/2 ML VIAL IV PUSH ×2 (09:34→21:10)
[2020-03-09] MEDS: SIMVASTATIN 20 MG TABLET PO (09:35)
[2020-03-09] MEDS: metroNIDAZOLE 500 MG/ISO 100ML 500 MG/100 ML BAG 100 MG IVPB ×2 (09:50→17:05)
[2020-03-09] MEDS: PANTOPRAZOLE 40 MG TABLET PO (11:28)
[2020-03-09 12:34] LABS: Glucose Point of Care 126 (65-105)
--- NOTE | 2020-03-09 15:01 | PM.IMPN ---
Progress Note: A&P Assessment and Plan (1) Acute encephalopathy: Code(s): G93.40 - Encephalopathy, unspecified Status: Acute Assessment and Plan: With expressive aphasia which appears to have improved. [place] to be likely secondary to UTI and dehydration vs CVA vs COVID infection. She was found to have vomit on herself on 03/07. 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 Son reports patient diagnosed with TIA several years ago. MRI brain unable to assess for enhancing lesions as patient not able to complete entire study; mildly limited evaluation. TSH, B12, Folate WNL. Lipid panel grossly unremarkable. Tele shows sinus rhythm with occasional PACs; artifact noted. She appears to have improved clinically today; at this moment, unclear definitive etiology. Will continue with neurochecks. Continue Tele with continuous pulse ox Neurology consulted and appreciate recommendations Proceed with Echo Will defer head/neck CTA to Neuro given JOSE ALFREDO Continue ST/PT/OT. Swallow study revealed no issues with regular diet with thin liquids Continue treatment for UTI and now possible aspiration pneumonia? Monitor closely (2) Urinary tract infection: Code(s): N39.0 - Urinary tract infection, site not specified Status: Acute Assessment and Plan: U suspicious for UTI. UCx shows Kleb pneum sensitive to Rocephin. IV Rocephin started from the ED which she appears to be tolerating well given penicillin allergy Continue IV Rocephin (day 4) Avoid acetaminophen as the patient has a known allergy to this. Use Ibuprofen sparingly given JOSE ALFREDO Monitor for improvement (3) Sepsis: Code(s): A41.9 - Sepsis, unspecified organism Status: Acute Assessment and Plan: Met SIRS criteria on arrival with tmax of 100.5 and tachypnea at arrival with UTI as suspected source; this appears to have resolved/improved. Lactic acid elevated but resolved with IV fluids. One BCx set growing coag neg staph in aerobic and anaerobic bottles with second set reportedly NGTD per [facility] (pending in EMR, although [facility] reports via phone this is negative thus far). Initially placed on vanc 03/08 prior to identification, but given one of two sets growing coag neg staph, it is felt likely to be a contaminate and vanc was discontinued. Continue treatment for suspected UTI as above Monitor for change in status (4) COVID-19: Code(s): U07.1 - COVID-19 Status: Acute Assessment and Plan: The patient has been swabbed for COVID-19 and is positive. She is maintaining adequate O2 sats on RA currently. CXR Continue droplet isolation. Continue supportive care. Supplemental O2 as needed (5) Pneumonia: Code(s): J18.9 - Pneumonia, unspecified organism Status: Acute Assessment and Plan: Likely due to COVID 19, although patient was found to have vomit on herself on 03/07 and CXR shows worsening bilateral lung disease. Aspiration pneumonia on COVID pneumonia a possibility. No leukocytosis. Mild fever overnight. Swallow study 03/08 states she can have reg diet with thin liquids IV Rocephin day 4 for UTI. Will add Flagyl to broaden spectrum for possible aspiration pneumonia (patient has penicillin allergy) Monitor respiratory status PRN ibuprofen for fevers Monitor closely (6) Acute kidney injury: Code(s): N17.9 - Acute kidney failure, unspecified Status: Acute Assessment and Plan: Cr 1.50 on arrival; stable at 1.30 today. Likely pre renal and secondary to dehydration; possible worsened with vanc and ibuprofen use Monitor renal func
[2020-03-09 17:26] LABS: Glucose Point of Care 95 (65-105)
[2020-03-09] MEDS: INSULIN GLARGINE (*BKC) 100 UNITS/ML 20 UNITS SUB-Q (22:28)
[2020-03-09 22:32] LABS: Glucose Point of Care 183 (65-105)
[2020-03-10] VITALS (7 sets, daily range): BP systolic 139–186; BP diastolic 61–98; PULSE 63–90; RESP 18–20; TEMP 36.3–37.2; O2SAT 92–100
--- NOTE | 2020-03-10 | ECHO_ITS ---
Patient Info Name: Akbar Elizondo Age: 74 years : 1945 Gender: Female Ht: 64 in Wt: 190 lbs BSA: 2.01 m2 HR: 69 bpm BP: 155 / 60 mmHg Technical Quality: Good Exam Date: 03/10/2020 9:01 AM Exam Location: [facility] Patient Status: Inpatient Admit Date: 03/06/2020 Staff Ordering Physician: Yunier Jasso PA-C Senior Clerk: Rigoberto Kim RDCS, RT Attending Provider: Yunier Jasso PA-C Referring Physician: Romero DOAN; Exam Type: CA echo doppler color flow Study Info Indications R55 - Syncope and collapse Complete two-dimensional, color flow and Doppler transthoracic echocardiogram is performed. Summary 1. Complete two-dimensional, color flow and Doppler transthoracic echocardiogram is performed. 2. Left ventricular chamber dimension is normal. 3. Left ventricular systolic function is normal, estimated at 55-60%. 4. There is mildly increased left ventricular wall thickness. 5. The left ventricular diastolic function is grade I diastolic dysfunction. 6. E/e' 14 is mildly elevated. 7. There is trace aortic valve regurgitation. 8. There is mild aortic valve sclerosis. 9. The mitral valve has mildly calcified annulus. Left Ventricle E/e' 14 is mildly elevated. Left ventricular chamber dimension is normal. Left ventricular systolic function is normal, estimated at 55-60%. There is mildly increased left ventricular wall thickness. The left ventricular diastolic function is grade I diastolic dysfunction. Right Ventricle Right ventricular chamber dimension is normal. Right ventricular systolic function is normal. Left Atria Left atrial chamber dimension is normal. Right Atria Right atrial chamber dimension is normal. Aortic Valve Cannot determine number of aortic valve leaflets. The aortic valve is not well visualized. There is mild aortic valve sclerosis. There is no aortic valve stenosis. There is trace aortic valve regurgitation. Pulmonic Valve There is no pulmonic regurgitation. Mitral Valve The mitral valve has mildly calcified annulus. There is no mitral valve stenosis. There is no mitral valve regurgitation. Tricuspid Valve There is no tricuspid valve regurgitation. Pericardium/Pleural There is no pericardial effusion. Inferior Vena Cava Dilated inferior vena cava with >50% collapse upon inspiration consistent with normal right atrial pressure, 5 mmHg. Aorta The aortic root size at the sinus of Valsalva is normal. Left Ventricular Outflow Tract Name Value Normal LVOT 2D LVOT Diameter 1.9 cm LVOT Doppler LVOT Peak Velocity 107 cm/s LVOT Peak Gradient 5 mmHg LVOT Mean Gradient 3 mmHg LVOT VTI 24 cm LVOT VTI/AV VTI Ratio 0.8 LVOT Stroke Volume 66 ml LVOT CO 4.7 l/min LVOT CI 2.3 l/min/m2 Mitral Valve Name
[2020-03-10] MEDS: metroNIDAZOLE 500 MG/ISO 100ML 500 MG/100 ML BAG 100 MG IVPB ×4 (00:10→23:14)
[2020-03-10 06:16] LABS: Basophils Percent Auto 0.3 % (0.2-1.2); Eosinophils Absolute Auto 0.1 K/mm3 (0-0.3); Eosinophils Percent Auto 2.2 % (0-4.4); Hematocrit 32.7 % (37.0-47.0); Hemoglobin 11.1 g/dL (12.0-15.0); Immature Granulocyte Absolute 0.03 K/mm3 (0.00-0.031); Immature Granulocyte Percent A 0.8 % (0-0.5); Lymphocytes Absolute Auto 1.34 K/mm3 (0.9-3.2); Mean Corpuscular HGB Conc 33.9 g/dl (32-36); Mean Corpuscular Hemoglobin 29.5 pg (26-34); Mean Platelet Volume 10.1 fl (7.4-10.4); Monocytes Absolute Auto 0.5 K/mm3 (0.1-0.6); Monocytes Percent Auto 13.5 % (2.6-8.5); Neutrophils Absolute Auto 1.7 K/mm3 (1.3-6.7); Neutrophils Percent Auto 46.2 % (45.5-73.1); Platelet Count Result 200 k/mm3 (150-375); Red Blood Count 3.76 M/mm3 (4.2-5.4); Red Cell Distribution Width 12.2 % (11.5-14.5); White Blood Count 3.6 K/mm3 (4.5-10.0)
[2020-03-10 07:17] LABS: Anion Gap 7 mmol/L (8-16); Blood Urea Nitrogen 22 mg/dL (7-17); CRP 13.8 mg/dL (<1.0); Carbon Dioxide 27 mmol/L (22-30); Chloride 104 mmol/L (98-107); Estimated CRCL calculation 42 ml/min; Estimated Glomerular Filt Rate 48; Glucose 92 mg/dL (65-105); Lactate Dehydrogenase 702 U/L (313-618); Magnesium 1.7 mg/dL (1.6-2.3); Potassium 3.7 mmol/L (3.4-5.0); Sodium 138 mmol/L (137-145)
[2020-03-10 09:44] LABS: Glucose Point of Care 72 (65-105)
[2020-03-10] MEDS: allopurinoL 300 MG TABLET PO (10:19)
[2020-03-10] MEDS: ASPIRIN 81 MG CHEWABLE TABLET PO (10:19)
[2020-03-10] MEDS: CITALOPRAM HYDROBROMIDE 20 MG TABLET 40 MG PO (10:20)
[2020-03-10] MEDS: FAMOTIDINE 20 MG/2 ML VIAL IV PUSH ×2 (10:20→20:41)
[2020-03-10] MEDS: PANTOPRAZOLE 40 MG TABLET PO (10:20)
[2020-03-10] MEDS: SIMVASTATIN 20 MG TABLET PO (10:21)
--- NOTE | 2020-03-10 11:46 | PCNFU ---
Nutrition Follow-Up Complete: Inadequate Oral Intake as related to syncope as evidenced by poor po intake reported. Goal: Meet estimated nutritional needs Progressing towards goal. We will continue current goal. Pt current nutrition is DBCC with Glucerna shakes BID. Last recorded weight is 86.2 kg, no new weight. Bowel Motility:+BM reported 03/10. Labs Reviewed:GFR 48,BUN 22,Cr 1.10 Meds Noted:Novolog,Lantus,Protonix,Pepsid Additional Notes: Nutrition follow up. Spoke with nursing today in regards to patient due to COVID precautions. Patient had MBS on 03/08-recommending regular consistencies. Oral intake has been 25-75% of meals. Glucerna shakes BID ordered, which are providing 220 kcals and 10 gms protein. Agree with diet orders. Monitoring: Will monitor every 7 days.
[2020-03-10 13:58] LABS: Glucose Point of Care 102 (65-105)
--- NOTE | 2020-03-10 15:42 | PM.IMPN ---
Progress Note: A&P Assessment and Plan (1) Acute encephalopathy: Code(s): G93.40 - Encephalopathy, unspecified Status: Acute Assessment and Plan: With expressive aphasia which appears to have improved since admission, but still slow to respond. [place] to be likely secondary to UTI and dehydration vs CVA vs COVID infection. She was found to have vomit on herself on 03/07. 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 Son reports patient diagnosed with TIA several years ago. MRI brain unable to assess for enhancing lesions as patient not able to complete entire study; mildly limited evaluation. Echo grossly unremarkable. TSH, B12, Folate WNL. Lipid panel grossly unremarkable. Tele shows sinus rhythm with occasional PACs; artifact noted. She appears to have improved clinically today; at this moment, unclear definitive etiology. Will continue with neurochecks. Continue Tele with continuous pulse ox Neurology consulted and appreciate recommendations Will defer head/neck CTA to Neuro given JOSE ALFREDO Continue ST/PT/OT. Swallow study revealed no issues with regular diet with thin liquids Continue treatment for UTI and now possible aspiration pneumonia? Monitor closely (2) Urinary tract infection: Code(s): N39.0 - Urinary tract infection, site not specified Status: Acute Assessment and Plan: UA suspicious for UTI. UCx shows Kleb pneum sensitive to Rocephin. IV Rocephin started from the ED which she appears to be tolerating well given penicillin allergy Continue IV Rocephin (day 5) Avoid acetaminophen as the patient has a known allergy to this. Use Ibuprofen sparingly given JOSE ALFREDO Monitor for improvement (3) Sepsis: Code(s): A41.9 - Sepsis, unspecified organism Status: Acute Assessment and Plan: Met SIRS criteria on arrival with tmax of 100.5 and tachypnea at arrival with UTI as suspected source; this appears to have resolved/improved. Lactic acid elevated but resolved with IV fluids. One BCx set growing coag neg staph in aerobic and anaerobic bottles with second set reportedly NGTD per [facility] (pending in EMR, although [facility] reports via phone this is negative thus far). Initially placed on vanc 03/08 prior to identification, but given one of two sets growing coag neg staph, it is felt likely to be a contaminate and vanc was discontinued. Continue treatment for suspected UTI as above Monitor for change in status (4) COVID-19: Code(s): U07.1 - COVID-19 Status: Acute Assessment and Plan: The patient has been swabbed for COVID-19 and is positive. She is maintaining adequate O2 sats on RA currently. CXR Continue droplet isolation. Continue supportive care. Supplemental O2 as needed (5) Pneumonia: Code(s): J18.9 - Pneumonia, unspecified organism Status: Acute Assessment and Plan: Likely due to COVID 19, although patient was found to have vomit on herself on 03/07 and repeated CXR on 03/08 shows worsening bilateral lung disease. Aspiration pneumonia on COVID pneumonia a possibility. Leukopenia today. Mild fever on 03/09. Swallow study 03/08 states she can have reg diet with thin liquids IV Rocephin day 5 for UTI. Will continue Flagyl (day 2) to broaden spectrum for possible aspiration pneumonia (patient has penicillin allergy) Monitor respiratory status PRN ibuprofen for fevers Monitor closely (6) Acute kidney injury: Code(s): N17.9 - Acute kidney failure, unspecified Status: Acute Assessment and Plan: Cr 1.50 on arrival; improved at 1.10 today. Likely pre renal and secondar
[2020-03-10 18:48] LABS: Glucose Point of Care 102 (65-105)
[2020-03-10 21:07] LABS: Glucose Point of Care 93 (65-105)
[2020-03-11] VITALS: BP 156/72; PULSE 80; PULSE 82; RESP 20; TEMP 36.9; O2SAT 97
[2020-03-11 04:00] VITALS: BP 179/70; PULSE 78; PULSE 81; RESP 20; TEMP 37.1; O2SAT 94
[2020-03-11 08:00] VITALS: BP 196/74; PULSE 76; PULSE 82; RESP 20; TEMP 36.2; O2SAT 94
[2020-03-11 08:13] LABS: Basophils Percent Auto 0.5 % (0.2-1.2); Eosinophils Absolute Auto 0.1 K/mm3 (0-0.3); Eosinophils Percent Auto 3.1 % (0-4.4); Hematocrit 36.1 % (37.0-47.0); Hemoglobin 12.1 g/dL (12.0-15.0); Immature Granulocyte Absolute 0.03 K/mm3 (0.00-0.031); Immature Granulocyte Percent A 0.7 % (0-0.5); Lymphocytes Percent Auto 35.5 % (18.3-44.2); Mean Corpuscular HGB Conc 33.5 g/dl (32-36); Mean Corpuscular Hemoglobin 29.3 pg (26-34); Mean Corpuscular Volume 87.4 fl (80-100); Mean Platelet Volume 9.6 fl (7.4-10.4); Monocytes Absolute Auto 0.6 K/mm3 (0.1-0.6); Monocytes Percent Auto 14.2 % (2.6-8.5); Platelet Count Result 246 k/mm3 (150-375); Red Blood Count 4.13 M/mm3 (4.2-5.4); Red Cell Distribution Width 12.2 % (11.5-14.5); White Blood Count 4.2 K/mm3 (4.5-10.0)
[2020-03-11 08:25] LABS: Potassium 3.4 mmol/L (3.4-5.0)
[2020-03-11 08:28] LABS: Anion Gap 9 mmol/L (8-16); Blood Urea Nitrogen 17 mg/dL (7-17); Calcium 8.3 mg/dL (8.4-10.2); Carbon Dioxide 28 mmol/L (22-30); Chloride 103 mmol/L (98-107); Estimated CRCL calculation 38 ml/min; Estimated Glomerular Filt Rate 44; Glucose 96 mg/dL (65-105); Magnesium 1.8 mg/dL (1.6-2.3); Sodium 140 mmol/L (137-145)
[2020-03-11] MEDS: ASPIRIN 81 MG CHEWABLE TABLET PO (09:25)
[2020-03-11] MEDS: metroNIDAZOLE 500 MG/ISO 100ML 500 MG/100 ML BAG 100 MG IVPB (09:25)
[2020-03-11] MEDS: allopurinoL 300 MG TABLET PO (09:25)
[2020-03-11] MEDS: CITALOPRAM HYDROBROMIDE 20 MG TABLET 40 MG PO (09:26)
[2020-03-11] MEDS: FAMOTIDINE 20 MG/2 ML VIAL IV PUSH (09:26)
[2020-03-11] MEDS: PANTOPRAZOLE 40 MG TABLET PO (09:27)
[2020-03-11 09:45] LABS: Glucose Point of Care 105 (65-105)
[2020-03-11 10:00] LABS: Vancomycin Trough < 5.0 ug/mL (10.0-20.0)
[2020-03-11] MEDS: SIMVASTATIN 20 MG TABLET PO (10:30)
--- NOTE | 2020-03-11 11:15 | PM.DS ---
DS: Admitting Diagnosis Admitting Diagnosis Admitting Diagnosis: Syncope/acute kidney injury/dehydration/UTI DS: Discharge Diagnosis Discharge Diagnosis (1) Acute encephalopathy: Code(s): G93.40 - Encephalopathy, unspecified Status: Resolved Assessment and Plan: With expressive aphasia which appears to have improved since admission. [place] to be likely secondary to UTI and dehydration vs CVA vs COVID infection. CT and MRI brain unremarkable for acute intracranial process, although old infarcts in the left occipital lobe, left caudate nucleus and left cerebellum noted. MRI brain unable to assess for enhancing lesions as patient not able to complete entire study; mildly limited evaluation. Echo grossly unremarkable. TSH, B12, Folate WNL. Lipid panel grossly unremarkable. Expressive aphasia is resolved. (2) Urinary tract infection: Code(s): N39.0 - Urinary tract infection, site not specified Status: Acute Assessment and Plan: UA suspicious for UTI. UCx shows Kleb pneum sensitive to Rocephin. IV Rocephin started from the ED Pt has been on IV Rocephin for 5 days now. Discharged on oral ciprofloxacin for 7 days which is sensitive to Kpneumonia. (3) Sepsis: Code(s): A41.9 - Sepsis, unspecified organism Status: Acute Assessment and Plan: Met SIRS criteria on arrival with tmax of 100.5 and tachypnea at arrival with UTI as suspected source; this appears to have resolved/improved. Lactic acid elevated but resolved with IV fluids. One BCx set growing coag neg staph in aerobic and anaerobic bottles. Pt Initially placed on vanc 03/08 prior to identification, but given one of two sets growing coag neg staph, it is felt likely to be a contaminate and vanc was discontinued. (4) COVID-19: Code(s): U07.1 - COVID-19 Status: Acute Assessment and Plan: The patient has been swabbed for COVID-19 and is positive. She is maintaining adequate O2 sats on RA currently. Stable for discharge not deoxygenating. (5) Pneumonia: Code(s): J18.9 - Pneumonia, unspecified organism Status: Acute Assessment and Plan: Likely due to COVID 19, although patient was found to have vomit on herself on 03/07 and repeated CXR on 03/08 shows worsening bilateral lung disease. Aspiration pneumonia on COVID pneumonia a possibility. Leukopenia today. Mild fever on 03/09. Swallow study 03/08 states she can have reg diet with thin liquids Pt treated with IV flagyl and IV rocephin. No fever, no cough no temperature noted. (6) Acute kidney injury: Code(s): N17.9 - Acute kidney failure, unspecified Status: Acute Assessment and Plan: Cr 1.50 on arrival; improved at 1.10 today. (7) Dehydration: Code(s): E86.0 - Dehydration Status: Resolved Assessment and Plan: Likely poor PO intake secondary to suspected UTI Encourage PO intake (8) GERD (gastroesophageal reflux disease): Qualifiers: Esophagitis presence: esophagitis presence not specified Qualified Code(s): K21.9 - Gastro-esophageal reflux disease without esophagitis Code(s): K21.9 - Gastro-esophageal reflux disease without esophagitis Status: Chronic Assessment and Plan: Continue home PPI therapy (9) Fall: Qualifiers: Encounter type: initial encounter Qualified Code(s): W19.XXXA - Unspecified fall, initial encounter Code(s): W19.XXXA - Unspecified fall, initial encounter Status: Acute Assessment and Plan: Patient's acute falls likely secondary to acute encephalopathy and UTI as well as possible dehydration vs less likely acute stroke as noted above.
--- NOTE | 2020-03-11 11:23 | PCPTNOTE ---
Patient refused treatment this session. When asked to participate in transfers, gait and exercises patient shook head no. Patient did not verbalize when asked why she would not participate. Patient shook head no when asked if she was having any pain. PT will continue to follow per plan of care.
[2020-03-11 12:00] VITALS: BP 179/85; PULSE 81; PULSE 85; RESP 20; TEMP 36.2; O2SAT 96
[2020-03-11 13:31] LABS: Glucose Point of Care 146 (65-105)
== END 2020-03-11 15:15 | DRG 871 ==
LOC: ANHED 20:14 → ANH3MEDSUR 03-07 00:42
PROVIDERS: Emergency Medicine Emergency Medical Services; Admitting Provider Family Medicine; Emergency Provider Emergency Medicine; Visit Provider Physician Assistant
DX: A41.89 Other specified sepsis (principal); U07.1 COVID-19; J12.89 Other viral pneumonia; G93.40 Encephalopathy, unspecified; N17.9 Acute kidney failure, unspecified; N39.0 Urinary tract infection, site not specified; R47.01 Aphasia; B96.1 Klebsiella pneumoniae [K. pneumoniae] as the cause of diseases classified elsewhere; E86.0 Dehydration; R55 Syncope and collapse; W19.XXXA Unspecified fall, initial encounter; M10.9 Gout, unspecified; E11.9 Type 2 diabetes mellitus without complications; K21.9 Gastro-esophageal reflux disease without esophagitis; I10 Essential (primary) hypertension; R79.89 Other specified abnormal findings of blood chemistry; Z28.21 Immunization not carried out because of patient refusal; Z79.4 Long term (current) use of insulin; Z79.82 Long term (current) use of aspirin; Z79.899 Other long term (current) drug therapy; Z86.73 Personal history of transient ischemic attack (TIA), and cerebral infarction without residual deficits; Z88.0 Allergy status to penicillin; Z88.6 Allergy status to analgesic agent
CPT/HCPCS: 36415; 36600; 51701; 70450; 70553; 71045; 71046; 80048; 80053; 80061; 80202; 81001; 82375; 82550; 82607; 82728; 82746; 82805; 83036; 83050; 83605; 83615; 83735; 83880; 84443; 84484; 85025; 85610; 85730; 86140; 87040; 87077; 87086; 87088; 87147; 87186; 87635; 87804; 92507; 92523; 92610; 93005; 93306; 93880; 96361; 96365; 97110; 97116; 97162; 97165; 97530; 97535; 99285; A9270; C9803; J0360; J0696; J1815; J2405; J3370; J7030; J7040; J7120; U0003

== ENCOUNTER 2020-07-13 15:21 | Emergency (ER) | payer MEDICARE, SELFPAY ==
--- NOTE | ~2020-07-13 | XR_ITS ---
EXAMINATION: XR chest 1V EXAM DATE: 07/13/2020 16:03 INDICATION: Fall, injury, right chest pain. TECHNIQUE: Portable AP frontal chest x-ray was obtained. Comparison is made to prior examination from 03/08/2020. FINDINGS: Comminuted right humeral neck/head fractures. The lungs are clear. There are no pleural ef fusions. Cardiac silhouette is prominent but magnified on this AP technique. There is no pneumotho rax suspected. There is aortic arteriosclerosis. IMPRESSION: No acute cardiopulmonary findings. Comminuted right humeral neck/head fractures. Reviewed, dictated and finalized at location A. IMPRESSION: No acute cardiopulmonary findings. Comminuted right humeral neck/ head fractures.
--- NOTE | ~2020-07-13 | XR_ITS ---
EXAMINATION: XR elbow RT 2V EXAM DATE: 07/13/2020 16:03 INDICATION: Initial encounter following injury, with pain of the right elbow. TECHNIQUE: Frontal and lateral projections of the right elbow. There is no prior study for comparis on. FINDINGS: There are no acute right elbow fractures or dislocations identified. There is no subcutane ous gas. The soft tissue is unremarkable. There are no radiopaque foreign bodies. IMPRESSION: 1. XR elbow RT 2V exam without acute osseous findings. Reviewed, dictated and finalized at location A.
--- NOTE | ~2020-07-13 | XR_ITS ---
EXAMINATION: XR shoulder RT min 2V EXAM DATE: 07/13/2020 16:03 INDICATION: Initial encounter following injury, with pain of the right shoulder. TECHNIQUE: Frontal, Y projections of the right scapula and shoulder. There is no prior study for co mparison. FINDINGS: Acute closed posttraumatic fractures of the right humeral neck and head. There is some pos terior lateral angulation, and some anterior displacement. The humeral head is in expected location, not dislocated. Acromioclavicular joint is unremarkable. IMPRESSION: Comminuted right humeral head/neck fractures. Reviewed, dictated and finalized at location A.
[2020-07-13 15:30] VITALS: BP 172/83; PULSE 91; RESP 18; TEMP 37; O2SAT 99
[2020-07-13] MEDS: ONDANSETRON HCL ODT 4 MG TABLET PO (16:40)
--- NOTE | 2020-07-13 16:41 | ED.UPPEXIN ---
HPI - Extremity Injury (Upper) General Chief Complaint: Extremity Injury, Upper Stated Complaint: fell last night Time Seen by Provider: 07/13/20 15:48 Source: patient, family and RN notes reviewed Limitations: no limitations History of Present Illness HPI narrative: Patient is 75 years old white female presents with deformity and pain of the right shoulder after a fall last night. Patient was leaving the restaurant, did not have her walker with her, holding on a metal side then fell. Denies loss of consciousness, head injury or any other injuries. Complaining of right shoulder pain. Patient is right-handed, she denies any fever, chills, nausea, vomiting, chest pain, shortness of breath, back pain or abdominal pain. Related Data Home Medications Medication Instructions Recorded Confirmed Basaglar KwikPen U-100 Insulin 40 unit SUBCUT HS 03/06/20 03/06/20 allopurinol 300 mg PO DAILY 03/06/20 03/06/20 aspirin 81 mg PO DAILY 03/06/20 03/06/20 losartan 100 mg PO DAILY 03/06/20 03/06/20 metformin 1,000 mg PO BID 03/06/20 03/06/20 omeprazole 20 mg PO DAILY 03/06/20 03/06/20 simvastatin 20 mg PO DAILY 03/06/20 03/06/20 tolterodine 2 mg PO DAILY 03/06/20 03/06/20 venlafaxine 37.5 mg PO DAILY 03/06/20 03/06/20 furosemide 07/13/20 07/13/20 ibuprofen-diphenhydramine cit 07/13/20 07/13/20 [Advil PM] insulin aspart U-100 [Novolog 07/13/20 07/13/20 U-100 Insulin aspart] Allergies Allergy/AdvReac Type Severity Reaction Status Date / Time acetaminophen Allergy Unknown Rash Verified 07/13/20 15:21 Penicillins Allergy Unknown Rash Verified 07/13/20 15:21 Review of Systems Review of Systems: Narrative: CONSTITUTIONAL: Denies fever, chills, or sweats. EYES: Denies visual changes, redness, or discharge. ENT: Denies rhinorrhea, congestion, sore throat, or otalgia. CARDIOVASCULAR: Denies chest pain, palpitations, or edema. RESPIRATORY: Denies cough or dyspnea. GASTROINTESTINAL: Denies abdominal pain, nausea, vomiting, or diarrhea. GENITOURINARY: Denies dysuria or hematuria. SKIN: Denies rash or itching. MUSCULOSKELETAL: Denies back pain, joint pain, or myalgia. NEUROLOGIC: Denies headache, numbness, or weakness. PSYCHIATRIC: Denies anxiety or depression. [facility] Past Medical History Medical History Diabetes mellitus GERD (gastroesophageal reflux disease) Gout Hypertension Family History Family History Father Muscular dystrophy Social History Social History Smoking status: Unknown if ever smoked Alcohol intake: never Substance use: never Gender identity (if verbalized by the patient): Female Spiritual care concerns: No Exam Narrative: Exam Narrative: General appearance: Well-developed, well-nourished Skin: Normal color Head: Normocephalic, nontraumatic Eyes: Clear conjunctiva ENT: Oropharynx normal, ears normal, nose normal Neck: Supple, nontender Chest and respiratory: Airway patent, no respiratory distress, no accessory muscle use Heart: Regular rate/rhythm Abdomen: Soft, nontender, no organomegaly, quiet bowel sounds Vascular: Normal peripheral pulses, normal capillary refill. Musculoskeletal: Right shoulder deformity, severe limited range of motion, diffuse pain, bruises Neurologic: Alert and oriented ?3, [employer] is normal as tested, no gross motor deficit Course Course Emergency Course: Stable Vital Signs Vital signs: Vital Signs Temperature 37.0 C 07/13/20 15:30 Pulse Rate 91 07/13/20 15:30 Respiratory Rate 18 07/13/20 15:30 Blood Pressure 172/83 H 07/13/20
[2020-07-13] MEDS: MORPHINE SULFATE INJ (*CRX) 10 MG/ML AMP 6 MG IM (16:42)
[2020-07-13 17:55] VITALS: BP 169/64; PULSE 92; RESP 18; O2SAT 97
== END 2020-07-13 17:55 | disposition home or self-care (01) ==
PROVIDERS: Emergency Provider Emergency Medicine; PCP Internal Medicine
DX: S42.291A Other displaced fracture of upper end of right humerus, initial encounter for closed fracture (principal); E11.9 Type 2 diabetes mellitus without complications; K21.9 Gastro-esophageal reflux disease without esophagitis; M10.9 Gout, unspecified; I10 Essential (primary) hypertension; Z79.82 Long term (current) use of aspirin; Z79.4 Long term (current) use of insulin; W18.39XA Other fall on same level, initial encounter
CPT/HCPCS: 71045; 73030; 73070; 96372; 99284; A4565; A9270; J2270

== ENCOUNTER 2020-08-10 12:53 | Emergency (ER) | payer MEDICARE, SELFPAY ==
--- NOTE | ~2020-08-10 | XR_ITS ---
EXAMINATION: XR chest 1V portable DATE: 08/10/2020 13:52 INDICATION: Nausea and vomiting. Weakness. TECHNIQUE: A single frontal view of the chest was obtained. COMPARISON: Chest single view 07/13/2020 FINDINGS: Shadows from a right shoulder sling overlie the right lower lung zone. No pneumonia, pleura l effusion, or pneumothorax. The heart size is normal. There is a comminuted fracture of proximal rig ht humerus. IMPRESSION: 1. No acute cardiopulmonary disease. 2. Comminuted fracture of proximal right humerus again seen. Reviewed, dictated and finalized at location A.
--- NOTE | ~2020-08-10 | CT_ITS ---
EXAMINATION: CT abdomen pelvis w con DATE: 08/10/2020 15:21 INDICATION: Nausea and vomiting. Status post fall. Dizziness. TECHNIQUE: Computed tomography (CT) of the abdomen and pelvis was performed with 100 cc Omnipaque 350 intravenous contrast. The dose-length product was 1081.45 mGy-cm. Automated exposure control and ite rative reconstruction technique were employed. COMPARISON: None. FINDINGS: Lung bases are unremarkable. Cardiomegaly. No significant pleural or pericardial effusion. Moderate hiatal hernia. Status post cholecystectomy. The spleen contains calcified granulomas. Small bilateral adrenal nodule s, most likely benign adenomas. There is bilateral renal atrophy. There are bilateral renal cysts. Sm all fat-containing umbilical hernia. Moderate colonic fecal loading. Colonic diverticulosis without e vidence for diverticulitis. No free air or free fluid. Moderate lumbar spondylosis at L5-S1. There is osteoarthritis of the hips. Small fat-containing umbilical hernia. Nonobstructive bowel gas pattern. No free air or free fluid. Status post hysterectomy. 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 IMPRESSION: 1. No acute abdominal abnormality. Reviewed, dictated and finalized at location A.
--- NOTE | ~2020-08-10 | CT_ITS ---
EXAMINATION: CT brain wo con DATE: 08/10/2020 15:13 INDICATION: Dizziness. Nausea and vomiting. TECHNIQUE: Computed tomography (CT) of the head was performed without intravenous contrast. The dose- length product was 681.00 mGy-cm. Automated exposure control and iterative reconstruction technique w ere employed. COMPARISON: CT dated 03/06/2020 FINDINGS: Generalized atrophy. There are scattered severe periventricular and subcortical white matte r changes, most likely related to small vessel ischemic disease (microangiopathy). There are chronic infarcts of the left caudate nucleus, left thalamus, left occipital lobe. No acute intracranial hemor rhage, infarction, mass or mass effect. No ventriculomegaly or midline shift. Basilar cisterns are pa tent. There is intracranial atherosclerosis. Paranasal sinuses and mastoids are pneumatized. No depre ssed skull fractures. IMPRESSION: 1. No acute intracranial abnormality. 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 3: Chronic age-related findings. Reviewed, dictated and finalized at location A. IMPRESSION: 1. No acute intracranial abnormality. 2: Chronic infarctions of the left caudate nucleus, thalamus and occipital lob e. 3: Chronic age-related findings.
[2020-08-10 12:59] VITALS: BP 130/84; PULSE 95; RESP 18; TEMP 36.2; O2SAT 100
--- NOTE | 2020-08-10 13:18 | ECG_ITS ---
Measurements Intervals [place] Rate: 93 P: 24 [place]: 172 QRS: -33 QRSD: 102 T: 27 QT: 364 QTc: 454 Interpretive Statements SINUS RHYTHM LEFT AXIS DEVIATION VOLTAGE CRITERIA FOR LVH POOR R WAVE PROGRESSION, CONSIDER ANTERIOR INFARCT BORDERLINE T WAVE ABNORMALITY- INFERIOR LEADS ABNORMAL ECG Electronically Signed On 08-10-2020 14:17:24 CDT by Ryan Skaggs D.O.
[2020-08-10 13:22] LABS: Glucose Point of Care 151 (65-105)
--- NOTE | 2020-08-10 13:33 | ED.NAVMDI ---
HPI - Nausea/Vomiting/Diarrhea General Chief complaint: Nausea/Vomiting/Diarrhea Stated complaint: sick and vomiting for 2 weeks Time Seen by Provider: 08/10/20 12:54 Source: patient and family Mode of arrival: ambulatory History of Present Illness HPI Narrative: This is a 75 year old female with history of hypertension,DM, hyperlipidemia who presents for evaluation of nausea and vomiting for 10 days. Her son is at bedside helping with history. He states patient initially had intermittent nausea and vomiting. She was able to eat and drink without vomiting for a couple of days so they though she ate something wrong. Over the past 2 days she has been unable eat or drink any thing without vomiting. She denies diarrhea , fever, abdominal pain or chills. She fell over 3 weeks ago and she suffered a right proximal humerus fracture. She has been following with Dr. Steele and she states she is healing well. She was taking oxycodone at onset of injury for a few days but recently she has only required ibuprofen as needed for pain. It is unclear how much ibuprofen she has been taking. Related Data Home Medications Medication Instructions Recorded Confirmed Basaglar KwikPen U-100 Insulin 40 unit SUBCUT HS 03/06/20 08/10/20 allopurinol 300 mg PO DAILY 03/06/20 08/10/20 aspirin 81 mg PO DAILY 03/06/20 08/10/20 losartan 100 mg PO DAILY 03/06/20 08/10/20 metformin 1,000 mg PO BID 03/06/20 08/10/20 omeprazole 20 mg PO DAILY 03/06/20 08/10/20 simvastatin 20 mg PO DAILY 03/06/20 08/10/20 tolterodine 2 mg PO DAILY 03/06/20 08/10/20 venlafaxine 37.5 mg PO DAILY 03/06/20 08/10/20 furosemide 20 mg PO DAILY 07/13/20 08/10/20 ibuprofen-diphenhydramine cit 1 tablet PO HS PRN 07/13/20 08/10/20 [Advil PM] insulin aspart U-100 [Novolog 07/13/20 07/30/20 U-100 Insulin aspart] Allergies Allergy/AdvReac Type Severity Reaction Status Date / Time acetaminophen Allergy Unknown Rash Verified 08/10/20 13:05 Penicillins Allergy Unknown Rash Verified 08/10/20 13:05 Review of Systems Review of Systems: All systems reviewed & are unremarkable except as noted in HPI and below Constitutional: Constitutional: Denies chills and Denies fever(s) Cardiovascular: Cardiovascular: Denies chest pain Respiratory: Respiratory: Reports cough and Denies dyspnea Gastrointestinal: Gastrointestinal: Denies diarrhea, Reports nausea and Reports vomiting Genitourinary: Genitourinary: Denies hematuria and Denies dysuria Musculoskeletal: Musculoskeletal: Denies back pain Neurologic: Reports dizziness Comments: denies headache [facility], [facility] Past Medical History Medical History Arthritis Constipation Coughing Diabetes mellitus Diarrhea Dizziness Fracture of humerus, proximal, right, closed GERD (gastroesophageal reflux disease) Gout High cholesterol Hypertension Memory loss Vision changes Wears glasses Surgical History Surgical History History of bilateral knee replacement 2003 Family History Family History Father Muscular dystrophy Other Arthritis Diabetes mellitus Hypertension Social History Social History Smoking packs per day: 1 Smoking cigarettes per day: 20.0 Years smoked: 12 Smoking pack-years: 12.00 Smoking end date: 04/18/81 Alcohol intake: never Substance use: never Gender identity (if verbalized by the patient): Female Spiritual care concerns: No Exam Const: General: no acute distress and alert Orientation/consciousness: patient oriented x3 Eyes: Pupils: Equal, round and reactive pupils present EOM: EOMs intact bilaterally Resp: Effort & Inspection: normal respiratory effort and no retractions Auscultation: clear to auscultation bilaterally Cardio: Rate: regular rate Rhythm
[2020-08-10] MEDS: SODIUM CHLORIDE 0.9% IV 1,000 ML 999 ML IV CONT (13:41)
[2020-08-10] MEDS: ONDANSETRON INJ 4 MG/2 ML VIAL IV PUSH ×2 (13:41→15:03)
[2020-08-10 13:51] LABS: Basophils Percent Auto 0.6 % (0.2-1.2); Eosinophils Absolute Auto 0.2 K/mm3 (0-0.3); Eosinophils Percent Auto 2.7 % (0-4.4); Hematocrit 37.9 % (37.0-47.0); Hemoglobin 12.5 g/dL (12.0-15.0); Immature Granulocyte Absolute 0.02 K/mm3 (0.00-0.031); Immature Granulocyte Percent A 0.3 % (0-0.5); Lymphocytes Absolute Auto 2.38 K/mm3 (0.9-3.2); Lymphocytes Percent Auto 36.3 % (18.3-44.2); Mean Corpuscular Volume 90.9 fl (80-100); Mean Platelet Volume 9.7 fl (7.4-10.4); Monocytes Absolute Auto 0.7 K/mm3 (0.1-0.6); Monocytes Percent Auto 10.1 % (2.6-8.5); Neutrophils Absolute Auto 3.3 K/mm3 (1.3-6.7); Platelet Count Result 362 k/mm3 (150-375); Red Blood Count 4.17 M/mm3 (4.2-5.4); Red Cell Distribution Width 13.9 % (11.5-14.5); White Blood Count 6.6 K/mm3 (4.5-10.0)
[2020-08-10 14:01] LABS: Alanine Aminotransferase 10 U/L (4-35); Albumin Level 4.3 g/dL (3.5-5.1); Alkaline Phosphatase 121 U/L (38-126); Anion Gap 11 mmol/L (8-16); Aspartate Amino Transferase 19 U/L (14-36); Bilirubin,Total 0.4 mg/dL (0.2-1.3); Blood Urea Nitrogen 24 mg/dL (7-17); Calcium 9.6 mg/dL (8.4-10.2); Carbon Dioxide 22 mmol/L (22-30); Chloride 104 mmol/L (98-107); Estimated CRCL calculation 44 ml/min; Estimated Glomerular Filt Rate > 60; Glucose 159 mg/dL (65-105); Lipase 59 U/L (23-300); Potassium 4.3 mmol/L (3.4-5.0); Sodium 137 mmol/L (137-145)
[2020-08-10 14:51] LABS: Add Urine Microscopic? YES; Appearance Urine Cloudy (Clear); Bacteria Urine Trace /hpf; Bilirubin Urine Negative (Negative); Blood Urine Negative (Negative); Color Urine Yellow (Yellow); Glucose Urine UA Negative (Negative); Ketones Urine Negative (Negative); Leukocyte Esterase Ur 3+ LEU/UL (Negative); Mucus Urine Rare /lpf; Nitrate Urine Negative (Negative); Protein Urine 2+ mg/dL (Negative); Specific Grav Ur 1.018 (1.001-1.035); Squamous Epithelial Cell Urine Occasional /hpf (Few); Urobilinogen Urine Negative mg/dL (<2.0); WBC Clumps Urine Present /HPF; WBC Urine >75 /hpf
[2020-08-10 14:52] VITALS: BP 145/74; PULSE 81
[2020-08-10 14:53] VITALS: BP 163/79; PULSE 84
[2020-08-10 14:55] VITALS: BP 168/78; PULSE 90
[2020-08-10 17:24] VITALS: BP 180/72; PULSE 83; RESP 19; O2SAT 94
== END 2020-08-10 17:33 | disposition home or self-care (01) ==
PROVIDERS: Emergency Provider General Practice; PCP Internal Medicine
DX: N39.0 Urinary tract infection, site not specified (principal); R11.2 Nausea with vomiting, unspecified; I10 Essential (primary) hypertension; E11.9 Type 2 diabetes mellitus without complications; E78.5 Hyperlipidemia, unspecified; M19.90 Unspecified osteoarthritis, unspecified site; K21.9 Gastro-esophageal reflux disease without esophagitis; E78.00 Pure hypercholesterolemia, unspecified; Z96.653 Presence of artificial knee joint, bilateral; Z79.82 Long term (current) use of aspirin; Z79.4 Long term (current) use of insulin; Z87.891 Personal history of nicotine dependence; R94.31 Abnormal electrocardiogram [ECG] [EKG]
CPT/HCPCS: 36415; 51701; 70450; 71045; 74177; 80053; 81001; 82948; 83690; 85025; 87077; 87086; 87088; 87186; 93005; 96361; 96365; 96375; 96376; 99284; J0696; J2405; J7030; Q9967

== ENCOUNTER 2021-04-05 13:52 | Emergency (ER) | payer MEDICARE, SELFPAY ==
[2021-04-05] VITALS (8 sets, daily range): BP systolic 168–197; BP diastolic 68–102; PULSE 72–93; RESP 16–18; TEMP 36.4–36.7; O2SAT 95–100
--- NOTE | ~2021-04-05 | CT_ITS ---
EXAMINATION: CT abdomen pelvis w con DATE: 04/05/2021 18:56 INDICATION: Lower abdominal pain. Nausea and vomiting. TECHNIQUE: Computed tomography (CT) of the abdomen and pelvis was performed with 100 cc Omnipaque 350 intravenous contrast. The dose-length product was 1181.79 mGy-cm. Automated exposure control and ite rative reconstruction technique were employed. COMPARISON: CT dated 08/10/2020. FINDINGS: Lung bases are unremarkable. Heart size is mildly enlarged. No significant pleural or peric ardial effusion. Stable 1 cm bilateral adrenal nodules, likely benign adenomas. Small hiatal hernia. Status post cholecystectomy. There are calcified granulomas of the spleen. The pancreas is unremarkab le. There is bilateral renal atrophy with bilateral renal cysts. No hydronephrosis. 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 There is diffuse bladder wall thickening with a sm all amount of intraluminal gas. Colonic diverticulosis without evidence for acute diverticulitis. No free air or free fluid. Small fat-containing umbilical hernia. There are degenerative changes of the hips and pubic symphysis. There is mild lower lumbar spondylosis. IMPRESSION: 1. Circumferential thickening of the bladder wall, suspicious for cystitis, possibly chronic. 2: Stable small bilateral adrenal nodules, likely benign adenomas. Reviewed, dictated and finalized at location A. ROUNDER IMPRESSION: 1. Circumferential thickening of the bladder wall, suspicious for cystitis, pos sibly chronic. 2: Stable small bilateral adrenal nodules, likely benign adenomas.
--- NOTE | 2021-04-05 17:38 | ED.GENADULT ---
HPI - General Adult General Chief complaint: Nausea/Vomiting/Diarrhea Stated complaint: vomiting Time Seen by Provider: 04/05/21 17:25 Source: patient History of Present Illness HPI narrative: Patient is a 75 y/o female complaining of nausea and vomiting starting 2 days ago. She states that she is vomiting up mostly liquid. She vomited 5-10 times during last 24 hours. There is no known alleviating or exacerbating factor. She has mild abdominal pain. She states that she has not been able to keep her meds down due to vomiting. Related Data Home Medications Medication Instructions Recorded Confirmed Basaglar KwikPen U-100 Insulin 40 unit SUBCUT HS 03/06/20 11/26/20 allopurinol 300 mg PO DAILY 03/06/20 11/26/20 aspirin 81 mg PO DAILY 03/06/20 11/26/20 losartan 100 mg PO DAILY 03/06/20 11/26/20 metformin 1,000 mg PO BID 03/06/20 11/26/20 omeprazole 20 mg PO DAILY 03/06/20 11/26/20 simvastatin 20 mg PO DAILY 03/06/20 11/26/20 tolterodine 2 mg PO DAILY 03/06/20 11/26/20 venlafaxine 37.5 mg PO DAILY 03/06/20 11/26/20 furosemide 20 mg PO DAILY 07/13/20 11/26/20 ibuprofen-diphenhydramine cit 1 tablet PO HS PRN 07/13/20 11/26/20 [Advil PM] insulin aspart U-100 [Novolog 07/13/20 11/26/20 U-100 Insulin aspart] Allergies Allergy/AdvReac Type Severity Reaction Status Date / Time acetaminophen Allergy Unknown Rash Verified 11/26/20 14:04 Penicillins Allergy Unknown Rash Verified 11/26/20 14:04 Review of Systems Constitutional: Constitutional: Denies chills, Denies fever(s), Denies headache(s) and Denies weakness Eyes: Eyes: Denies blurry vision ENT: Denies headache(s) and Denies neck pain Cardiovascular: Cardiovascular: Denies chest pain and Denies dyspnea Respiratory: Respiratory: Denies cough and Denies dyspnea Gastrointestinal: Gastrointestinal: Reports abdominal pain, Denies diarrhea, Reports nausea and Reports vomiting Genitourinary: Genitourinary: Denies hematuria and Denies dysuria Musculoskeletal: Musculoskeletal: Denies back pain and Denies neck pain Neurologic: Denies headache(s) and Denies weakness [facility] Past Medical History Medical History Arthritis Constipation Coughing Diabetes mellitus Diarrhea Dizziness Fracture of humerus, proximal, right, closed GERD (gastroesophageal reflux disease) Gout High cholesterol Hypertension Memory loss Vision changes Wears glasses Surgical History Surgical History History of bilateral knee replacement 2003 Family History Family History Father Muscular dystrophy Other Arthritis Diabetes mellitus Hypertension Social History Social History Smoking packs per day: 1 Smoking cigarettes per day: 20.0 Years smoked: 12 Smoking pack-years: 12.00 Smoking end date: 04/18/81 Alcohol intake: never Substance use: never Gender identity (if verbalized by the patient): Female Spiritual care concerns: No Exam Const: General: no acute distress and well developed Orientation/consciousness: oriented to person, oriented to place, oriented to time and patient oriented x3 HENMT: Head: normocephalic Ears: external ears normal General nose exam: Normal external nose present Eyes: General: appearance normal, both eyes and all related structures Conjunctivae: conjunctivae normal Neck: Neck: normal visual inspection and full ROM Chest: Chest palpation & inspection: normal inspection of the chest and no tenderness Resp: Effort & Inspection: normal respiratory effort Auscultation: clear to auscultation bilaterally Cardio: Rate: regular rate Rhythm: regular rhythm GI: GI Palp: No abdominal tenderness and Yes Soft to palpation Skin: General skin exam: normal color and turgor normal Neuro: General: oriented to person, oriented to bob
[2021-04-05 17:55] LABS: Basophils Absolute Auto 0.1 K/mm3 (0.0-0.1); Basophils Percent Auto 0.7 % (0.2-1.2); Eosinophils Absolute Auto 0.1 K/mm3 (0-0.3); Eosinophils Percent Auto 1.6 % (0-4.4); Hematocrit 42.1 % (37.0-47.0); Hemoglobin 14.1 g/dL (12.0-15.0); Immature Granulocyte Absolute 0.03 K/mm3 (0.00-0.031); Immature Granulocyte Percent A 0.4 % (0-0.5); Lymphocytes Absolute Auto 2.87 K/mm3 (0.9-3.2); Lymphocytes Percent Auto 35.5 % (18.3-44.2); Mean Corpuscular HGB Conc 33.5 g/dl (32-36); Mean Corpuscular Hemoglobin 30.8 pg (26-34); Mean Corpuscular Volume 91.9 fl (80-100); Mean Platelet Volume 9.7 fl (7.4-10.4); Monocytes Absolute Auto 0.6 K/mm3 (0.1-0.6); Monocytes Percent Auto 7.8 % (2.6-8.5); Neutrophils Absolute Auto 4.4 K/mm3 (1.3-6.7); Platelet Count Result 314 k/mm3 (150-375); Red Blood Count 4.58 M/mm3 (4.2-5.4); Red Cell Distribution Width 13.9 % (11.5-14.5); White Blood Count 8.1 K/mm3 (4.5-10.0)
[2021-04-05 18:11] LABS: Alanine Aminotransferase 21 U/L (4-35); Alkaline Phosphatase 112 U/L (38-126); Anion Gap 9 mmol/L (8-16); Aspartate Amino Transferase 29 U/L (14-36); Bilirubin,Total 0.5 mg/dL (0.2-1.3); Blood Urea Nitrogen 27 mg/dL (7-17); Calcium 10.2 mg/dL (8.4-10.2); Carbon Dioxide 29 mmol/L (22-30); Chloride 95 mmol/L (98-107); Estimated CRCL calculation 39 ml/min; Estimated Glomerular Filt Rate 48; Glucose 258 mg/dL (65-110); Lipase 53 U/L (23-300); Potassium 4.6 mmol/L (3.4-5.0); Sodium 133 mmol/L (137-145)
[2021-04-05 18:29] LABS: Add Urine Microscopic? YES; Appearance Urine Cloudy (Clear); Bacteria Urine 2+ /hpf; Bilirubin Urine Negative (Negative); Blood Urine Negative (Negative); Budding Yeast Urine Present /hpf; Color Urine Yellow (Yellow); Glucose Urine UA Negative (Negative); Ketones Urine Negative (Negative); Leukocyte Esterase Ur 3+ LEU/UL (Negative); Mucus Urine Rare /lpf; Nitrate Urine Negative (Negative); Protein Urine 2+ mg/dL (Negative); Specific Grav Ur 1.017 (1.001-1.035); Squamous Epithelial Cell Urine Rare /hpf (Few); Urobilinogen Urine Negative mg/dL (<2.0); WBC Urine >75 /hpf
[2021-04-05] MEDS: SODIUM CHLORIDE 0.9% IV 1,000 ML 999 ML IV CONT (18:36)
[2021-04-05] MEDS: METOCLOPRAMIDE HCL INJ 10 MG/2 ML VIAL IV PUSH (18:37)
--- NOTE | 2021-04-05 20:20 | PC.NURSE ---
Patient given some crackers and water for PO challenge. Patient tolerated well.
[2021-04-05] MEDS: LOSARTAN POTASSIUM 100 MG TABLET PO (20:40)
[2021-04-05] MEDS: ONDANSETRON INJ 4 MG/2 ML VIAL IV PUSH (20:40)
[2021-04-05] MEDS: LABETALOL HCL INJ 100 MG/20 ML VIAL 10 MG IV PUSH (21:34)
== END 2021-04-05 22:26 | disposition home or self-care (01) ==
PROVIDERS: Emergency Provider Emergency Medicine; PCP Internal Medicine
DX: N39.0 Urinary tract infection, site not specified (principal); K52.9 Noninfective gastroenteritis and colitis, unspecified; I10 Essential (primary) hypertension; M19.90 Unspecified osteoarthritis, unspecified site; E11.9 Type 2 diabetes mellitus without complications; K21.9 Gastro-esophageal reflux disease without esophagitis; Z79.4 Long term (current) use of insulin
CPT/HCPCS: 36415; 51701; 74177; 80053; 81001; 83690; 85025; 87077; 87086; 87186; 96361; 96374; 96375; 99284; A9270; J2405; J2765; J7030; Q9967

== ENCOUNTER 2023-03-05 09:59 | Emergency (ER) | payer MEDICARE, SELFPAY ==
[2023-03-05 10:07] VITALS: BP 156/90; PULSE 77; RESP 18; TEMP 36.5; O2SAT 98
--- NOTE | 2023-03-05 11:03 | ECG_ITS ---
Measurements Intervals [place] Rate: 75 P: 55 CT: 177 QRS: -22 QRSD: 102 T: 29 QT: 397 QTc: 446 Interpretive Statements SINUS RHYTHM LEFT VENTRICULAR HYPERTROPHY WITH ST-T CHANGE BORDERLINE R WAVE PROGRESSION, ANTERIOR LEADS NONSPECIFIC T-WAVE ABNORMALITY- INF/LAT LEADS BASELINE WANDER- V4-V6 BORDERLINE ECG COMPARED TO ECG 08/10/2020 13:26:02 NO SIGNIFICANT CHANGES Electronically Signed On 03-05-2023 16:22:24 BRIDGE MAINTAINER by Ryan Skaggs D.O.
[2023-03-05 11:35] LABS: Basophils Absolute Auto 0.1 K/mm3 (0.0-0.1); Basophils Percent Auto 0.8 % (0.2-1.2); Eosinophils Absolute Auto 0.2 K/mm3 (0-0.3); Eosinophils Percent Auto 2.8 % (0-4.4); Hematocrit 43.5 % (37.0-47.0); Hemoglobin 13.8 g/dL (12.0-15.0); Immature Granulocyte Absolute 0.02 K/mm3 (0.00-0.031); Immature Granulocyte Percent A 0.3 % (0-0.5); Mean Corpuscular HGB Conc 31.7 g/dl (32-36); Mean Corpuscular Volume 91.4 fl (80-100); Mean Platelet Volume 10.6 fl (7.4-10.4); Monocytes Absolute Auto 0.7 K/mm3 (0.1-0.6); Monocytes Percent Auto 9.1 % (2.6-8.5); Neutrophils Absolute Auto 3.8 K/mm3 (1.3-6.7); Platelet Count Result 280 k/mm3 (150-375); Red Blood Count 4.76 M/mm3 (4.2-5.4); Red Cell Distribution Width 14.2 % (11.5-14.5); White Blood Count 7.5 K/mm3 (4.5-10.0)
[2023-03-05 11:47] LABS: Alanine Aminotransferase 19 U/L (6-35); Albumin Level 4.8 g/dL (3.5-5.1); Alkaline Phosphatase 77 U/L (38-126); Anion Gap 14 mmol/L (8-16); Aspartate Amino Transferase 32 U/L (14-36); Bilirubin,Total 0.9 mg/dL (0.2-1.3); Blood Urea Nitrogen 34 mg/dL (7-17); Calcium 9.7 mg/dL (8.4-10.2); Carbon Dioxide 23 mmol/L (22-30); Chloride 101 mmol/L (98-107); Estimated CRCL calculation 39 ml/min; Estimated Glomerular Filt Rate 48; Glucose 178 mg/dL (65-110); Potassium 4.8 mmol/L (3.4-5.0); Sodium 138 mmol/L (137-145)
[2023-03-05] MEDS: SODIUM CHLORIDE 0.9% IV 1,000 ML 999 ML IV CONT (11:48)
[2023-03-05 12:15] VITALS: BP 183/63; PULSE 71; RESP 22; O2SAT 100
[2023-03-05 12:27] LABS: Appearance Urine Cloudy (Clear); Bacteria Urine 4+ /hpf; Bilirubin Urine Negative (Negative); Blood Urine Negative (Negative); Color Urine Yellow (Yellow); Glucose Urine UA Negative (Negative); Ketones Urine Negative (Negative); Leukocyte Esterase Ur 3+ LEU/UL (Negative); Nitrate Urine Negative (Negative); Non Pathogenic Casts 0-2; Protein Urine 1+ mg/dL (Negative); RBC Urine 0-2 /hpf (0-2); Specific Grav Ur 1.014 (1.001-1.035); Squamous Epithelial Cell Urine Occasional /hpf (Few); Urobilinogen Urine 0.2 mg/dL (<2.0); WBC Urine >100 /hpf; pH Urine 6.5 (5.0-9.0)
[2023-03-05 12:33] LABS: Add Urine Microscopic? YES
--- NOTE | 2023-03-05 13:04 | ED.GENADULT ---
HPI - General Adult General Chief complaint: Dizziness Stated complaint: dizziness Time Seen by Provider: 03/05/23 10:36 History of Present Illness HPI narrative: Patient is a 77-year-old female who presents ER with her son for reports of weakness and lightheadedness. Patient has been feeling worse over the last couple of days. Patient has history of recurring UTI. She told her son yesterday that her urine was with a foul odor. Patient has slower moving today. No fevers or chills or sweats. No chest pain or chest pressure. Patient without nausea or vomiting. Patient has small dementia. Related Data Home Medications Medication Instructions Recorded Confirmed allopurinol 300 mg tablet 300 mg PO DAILY 03/06/20 11/26/20 aspirin 81 mg tablet 81 mg PO DAILY 03/06/20 11/26/20 insulin glargine 100 unit/mL (3 40 unit subcut HS 03/06/20 11/26/20 mL) subcutaneous pen (Basaglar KwikPen U-100 Insulin) losartan 100 mg tablet 100 mg PO DAILY 03/06/20 11/26/20 metformin 1,000 mg tablet 1,000 mg PO BID 03/06/20 11/26/20 omeprazole 20 mg capsule,delayed 20 mg PO DAILY 03/06/20 11/26/20 release simvastatin 20 mg tablet 20 mg PO DAILY 03/06/20 11/26/20 tolterodine 2 mg capsule,extended 2 mg PO DAILY 03/06/20 11/26/20 release 24 hr venlafaxine 37.5 mg 37.5 mg PO DAILY 03/06/20 11/26/20 capsule,extended release 24 hr furosemide 20 mg tablet 20 mg PO DAILY 07/13/20 11/26/20 ibuprofen-diphenhydramine citrate 1 tablet PO HS PRN Sleep 07/13/20 11/26/20 200 mg-38 mg tablet (Advil PM) insulin aspart U-100 100 unit/mL 07/13/20 11/26/20 subcutaneous solution (Novolog U-100 Insulin aspart) Allergies Allergy/AdvReac Type Severity Reaction Status Date / Time acetaminophen Allergy Unknown Rash Verified 11/26/20 14:04 Penicillins Allergy Unknown Rash Verified 11/26/20 14:04 Review of Systems Review of Systems: All systems reviewed & are unremarkable except as noted in HPI and below Constitutional: Constitutional: Denies chills, Reports fatigue and Denies fever(s) Cardiovascular: Cardiovascular: Reports no additional cardiovascular complaints Respiratory: Respiratory: Reports no additional respiratory complaints Gastrointestinal: Gastrointestinal: Reports no additional gastrointestinal complaints Genitourinary: Genitourinary: Denies nocturia and Denies dysuria PMF Past Medical History Medical History Arthritis Constipation Coughing Diabetes mellitus Diarrhea Dizziness Fracture of humerus, proximal, right, closed GERD (gastroesophageal reflux disease) Gout High cholesterol Hypertension Memory loss Vision changes Wears glasses Surgical History Surgical History History of bilateral knee replacement 2003 Family History Family History Father Muscular dystrophy Other Arthritis Diabetes mellitus Hypertension Social History Social History Smoking packs per day: 1 Smoking cigarettes per day: 20.0 Years smoked: 12 Smoking pack-years: 12.00 Smoking end date: 04/18/81 Alcohol intake: never Substance use: never Gender identity (if verbalized by the patient): Female Spiritual care concerns: No Exam Narrative: GENERAL: Well-appearing, well-nourished, and in no acute distress. HEAD: Normocephalic, atraumatic. ENT: Mucous membranes moist. NECK: Supple. CHEST: Clear to auscultation. No respiratory distress. HEART: Regular rate and rhythm. Normal peripheral pulses. ABDOMEN: Soft, nontender, nondistended. EXTREMITIES: Normal range of motion. No edema. SKIN: Warm, dry, no rash. NEURO: Alert and oriented x3. PSYCH: Normal mood and affect. Course Course Emergency Course: Patient feeling improved after IV fluid. Ambulatory with no issue. Family feels comfortable with
== END 2023-03-05 14:44 | disposition home or self-care (01) ==
PROVIDERS: Emergency Provider Emergency Medicine; PCP Internal Medicine
DX: N39.0 Urinary tract infection, site not specified (principal); I10 Essential (primary) hypertension; E11.9 Type 2 diabetes mellitus without complications; E78.00 Pure hypercholesterolemia, unspecified; K21.9 Gastro-esophageal reflux disease without esophagitis; M19.90 Unspecified osteoarthritis, unspecified site; M10.9 Gout, unspecified; Z96.653 Presence of artificial knee joint, bilateral; Z87.891 Personal history of nicotine dependence; Z79.82 Long term (current) use of aspirin; Z79.4 Long term (current) use of insulin; Z79.84 Long term (current) use of oral hypoglycemic drugs; I51.7 Cardiomegaly; R94.31 Abnormal electrocardiogram [ECG] [EKG]
CPT/HCPCS: 36415; 80053; 81001; 85025; 87077; 87086; 87186; 93005; 96360; 99283; J7030

== ENCOUNTER 2024-06-01 14:29 | Emergency (ER) | payer MEDICARE, SELFPAY ==
--- NOTE | ~2024-06-01 | CT_ITS ---
EXAMINATION: 1. CT facial & cervical spine wo DATE: 06/01/2024 14:53 INDICATION: Fall with facial injury TECHNIQUE: 1. Computed tomography (CT) of the maxillofacial region and of the cervical spine were performed with out intravenous contrast. Sagittal and coronal reconstructions of both regions were obtained. Automat ed exposure control and iterative reconstruction technique were employed. The dose-length product was mGy-cm. COMPARISON: None. FINDINGS: Maxillofacial CT: Prominent soft tissue swelling and subcutaneous hematoma the left malar region. Nondisplaced fracture of the left nasal bone the tip of which is elevated slightly posteriorly.. There is overlying soft t issue tissue swelling along the left side of the nose. No other maxillofacial fractures. Specifically the mandible, zygomatic arches and malave of the orbits and paranasal sinuses are intact. Unchanged m ild undulation the contours of the intact nasal septum which follows the contours of the turbinates. There is preseptal swelling at the left orbit. No post septal inflammatory stranding. The globes appe ar intact with changes of bilateral intraocular lens replacement. Mild mucosal thickening bilateral e thmoid and left maxillary sinuses. There are multiple dental caries including at the posterior most r emaining left maxillary molar with associated periapical lucencies. Cervical spine CT: Straightening of the normal cervical lordosis. Severe osteoarthritis at the atlantoaxial articulation . Vertebral body heights are normal. No fracture. Moderate disc height loss with moderate to severe u ncovertebral osteoarthritis at C4-C5 and C5-C6. Mild disc height loss at C2-C3, C6-C7 and C7-T1. Disc bulges and posterior disc ossified complexes resulting in mild central canal stenosis at C3-C4 throu gh C7-T1. Severe facet osteoarthritis on the right at C2-C3 and on the left at C4-C5. Mild to moderat e facet osteoarthritis the remaining levels. Mild neural from stenosis at a few levels on the left an d right sides of the cervical spine. Atherosclerotic calcifications at the bilateral carotid arteries . Bilateral thyroid nodules measuring up to 1.2 cm. Visualized apices of lungs are clear. IMPRESSION: 1. Mildly angulated nondisplaced left nasal bone fracture. No other maxillofacial fractures. 2. Moderate cervical spondylosis with no acute osseous abnormality. 3. Multinodular goiter. Reviewed, dictated and finalized at location A. KE WORKER IMPRESSION: 1. Mildly angulated nondisplaced left nasal bone fracture. No other maxillofaci al fractures. 2. Moderate cervical spondylosis with no acute osseous abnormality. 3. Multinodular goiter.
--- NOTE | ~2024-06-01 | CT_ITS ---
EXAMINATION: CT brain wo con DATE: 06/01/2024 14:53 INDICATION: Fall with head injury TECHNIQUE: Computed tomography (CT) of the head was performed without intravenous contrast. Sagittal and coronal reconstructions were performed. The mA was adjusted according to patient size. Iterative reconstruction technique was employed. The dose-length product was 422.69 mGy-cm. COMPARISON: head CT dated 08/10/2020 FINDINGS: Soft tissue swelling subcutaneous hematoma in the left malar region which extends into the preseptal soft tissues of the left orbit. Changes of bilateral intraocular lens replacement. No post septal inf lammatory stranding. No fracture. Small region of encephalomalacia consistent with chronic infarct at the medial left occipital lobe. Additional small old lacunar infarcts at the left thalamus and left basal ganglia. No acute intracranial hemorrhage, acute infarction or abnormal extra axial fluid colle ction. There is moderate scattered white matter hypoattenuation consistent with chronic small vessel ischemic disease. Symmetric prominence of the sulci consistent with moderate age-appropriate diffuse cerebral volume loss. Ventricles are normal and symmetric. No mass/mass effect. Mild mucosal thicken ing in the left maxillary sinus. Mastoid air cells and middle ear cavities are clear. IMPRESSION: 1. No fracture or acute intracranial process. 2. 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 3. Age-related changes including moderate diffuse volume loss and moderate scattered white matter hyp oattenuation consistent with chronic small vessel ischemic disease. Reviewed, dictated and finalized at location A. LY PSYCHOLOGIST IMPRESSION: 1. No fracture or acute intracranial process. 2. Old infarcts at the left occipital lobe, left thalamus and left basal gangli a. 3. Age-related changes including moderate diffuse volume loss and moderate scat tered white matter hypoattenuation consistent with chronic small vessel ischemi c disease.
[2024-06-01 14:30] VITALS: BP 151/78; PULSE 108; RESP 16; TEMP 36.4; O2SAT 96
--- OUTSIDE RECORDS SUMMARY | 2024-06-01 14:31 | XMS_ITS | Continuity of Care Document ---
Author Organization [facility] Address [address] [place] [address] Phone Care Team Providers Care Trimmer Meat Name Role Phone Elvis Pickett MD Unavailable Unavailable Allergies, Adverse Reactions, Alerts Substance Reaction Status Criticality acetaminophen Active No Information PENICILLIN Active No Information Medications Medication Instructions Dosage Effective Dates (start - stop) Status Comments Victoza 2-Timothy 0.6 mg/0.1 mL (18 mg/3 mL) subcutaneous pen injector inject 0.1 Milliliter by subcutaneous route every day 0.6 MG - Active Basaglar KwikPen U-100 Insulin 100 unit/mL (3 mL) subcutaneous inject by subcutaneous route as per insulin protocol 0.00 - Active 40 units sc daliy Zocor 20 mg tablet take 1 tablet by oral route every day in the evening 20 MG - Active allopurinol 300 mg tablet take 1 tablet by oral route every day 300 MG - Active Celexa 40 mg tablet take 1 tablet by oral route every day 40 MG - Active losartan 100 mg tablet take 1 tablet by oral route every day 100 MG - Active metformin 1,000 mg tablet take 1 tablet by oral route 2 times every day with morning and evening meals 1000 MG - Active Lasix 40 mg tablet take 2 tablet by oral route every day 80 MG - Active Procedures Procedure Date OFFICE/OUTPATIENT VISIT, EST PPPS, initial visit OFFICE/OUTPATIENT VISIT, NEW Advance Directives Directive Yes / No Effective Date File Name No Information Encounters Encounter Description Practice Location Reason(s) For Visit Diagnoses Date Provider Providers Copied on Encounter [facility], [address], [place], [place], [id number], [place] tel:[phone] [facility] No Information [address] Piyush Leal. [address], [place], [place], [address] , . [phone] Referring Provider: Elvis Pickett, Olive [facility] A, [place], [place], [id number]. tel:[phone] OFFICE/OUTPA TIENT VISIT, [facility], [address], [place], [place], [address], [place] [phone] [facility] headache1 (chief complaint) DM (chief complaint) Gout1 (chief complaint) htn (chief complaint) HyperlipidemiaType 2 diabetes mellitus without complicationsEssent ial (primary) hypertensionGoutHea dacheGeneralized Anxiety Disorder 8 Piyush Mitchell [address], [place], [place], [address] , [place]. tel:[phone] Referring Provider: Elvis Pickett [facility] [place], [place], [id number]. tel:[phone] OFFICE/OUTPA TIENT VISIT, [facility], [address] [place], [id number], [place] [phone] [facility] Physical (chief complaint) HyperlipidemiaType 2 diabetes mellitus without complicationsHeadac heEncounter for general adult medical exam w abnormal findingsEssential (primary) hypertension 8 Piyush Mitchell [address], [address], [place], [place], [address] , [place]. tel:[phone] Referring Provider: Elvis Pickett Olive Rogers [facility] [address], [place], [place], [id number]. tel:[phone] Family History Family Member Type Diagnosis Age At Onset Father Problem (finding) of 94 due to old a ge Sister Problem (finding) Alive and well Mother Problem (finding) of old age at 87 Payers Payer name Insurance type Covered constitution party ID Authoriza tion(s) No Information Social History Type Description Quantity Date Captured Comments Alcohol Use Details Unknown Caffeine Use Details Unknown Tobacco Use Status No Information Smoking Status No Information Sex Female Chief Complaint And Reason For Visit No Information Plan Of Treatment Date Type Action Status Goal Tobacco cessation counseling completed Goal Tobacco cessation counseling completed Goal Special diet education compl eted Referral Ordered: DXA BONE DENSITY, AXIAL ordered History Of Present Illness Encounter Date Complaint History Of Prese nt Illness headache1 Pt recently suff ered concussion and head injury. Pt still has mild vertigo but getting better. Pt denies any headache. Pt denies any mental status change DM Pt takes basagla r and victoza. Her Bg is around 120s .Pt denies any polyuria, polydipsia. Pt denies any numbness. Gout1 Pt has gout. Pt takes allopurinol. Pt has not had any gout attack for over one year. Pt denies any joint pain htn Pt has HTn. Pt t akes losartan and her BP is stable. Physical PT needs annual physical. Pt tripped by accident and fell backward and hit the back of head on concrete about 10 days ago. Pt denies any syncope or any palpitation or chest pain. Pt was talking on phone and going up several steps holding the leash of the dog and talking to her son and she tried to open the door and lost supervisor mold construction of the door know and fell backward. Pt did not lose consciousness. Pt called her son who called ambulance and was transferred to [place]. ER and she had negative head CT and negative x ray of neck. Pt denies any headache now. Pt needs kadeem removed from her scalp. Patient has diabetes. Patient takes Victoza insulin but she does not know the dosage. Patient said that her sugars are 120s. Patient denies any hypoglycemia. Patient takes Zocor for high cholesterol. Patient will take a high blood pressure medication but she does not know the name. Instructions Date Instruction Additional Infor mation Increase activity. Related to Hy perlipidemia Follow a low sodium diet. Relate d to Hyperlipidemia Increase activity. Related to Hy perlipidemia Special diet education Related t o Body mass index (BMI) 37.0-37.9, adult Assessments Type Assessment Date No Information
--- OUTSIDE RECORDS SUMMARY | 2024-06-01 15:05 | XMS_ITS | Continuity of Care Document ---
Author Organization [facility] Address [address] [facility] [place] [address] Phone Care Team Providers Care Artificial Teeth Inspector Name Role Phone Elvis Pickett MD Unavailable Unavailable Allergies, Adverse Reactions, Alerts Substance Reaction Status Criticality acetaminophen Active No Information PENICILLIN Active No Information Medications Medication Instructions Dosage Effective Dates (start - stop) Status Comments Lasix 40 mg tablet take 2 tablet by oral route every day 80 MG - Active metformin 1,000 mg tablet take 1 tablet by oral route 2 times every day with morning and evening meals 1000 MG - Active losartan 100 mg tablet take 1 tablet by oral route every day 100 MG - Active Celexa 40 mg tablet take 1 tablet by oral route every day 40 MG - Active allopurinol 300 mg tablet take 1 tablet by oral route every day 300 MG - Active Zocor 20 mg tablet take 1 tablet by oral route every day in the evening 20 MG - Active Basaglar RovertoikPen U-100 Insulin 100 unit/mL (3 mL) subcutaneous inject by subcutaneous route as per insulin protocol 0.00 - Active 40 units sc daliy Victoza 2-Timothy 0.6 mg/0.1 mL (18 mg/3 mL) subcutaneous pen injector inject 0.1 Milliliter by subcutaneous route every day 0.6 MG - Active Procedures Procedure Date OFFICE/OUTPATIENT VISIT, EST PPPS, initial visit OFFICE/OUTPATIENT VISIT, NEW Advance Directives Directive Yes / No Effective Date File Name No Information Encounters Encounter Description Practice Location Reason(s) For Visit Diagnoses Date Provider Providers Copied on Encounter [facility], [address], [place], [place], [id number], [place] tel:[phone] [facility] No Information 8 Piyush Leal. [address], [place], [place], [address] , . [phone] Referring Provider: Elvis Pickett, Olive [facility] A, [place], [place], [id number]. tel:[phone] OFFICE/OUTPA TIENT VISIT, [facility], [address], [place], [place], [address], [place] [phone] [facility] headache1 (chief complaint) DM (chief complaint) Gout1 (chief complaint) htn (chief complaint) HyperlipidemiaType 2 diabetes mellitus without complicationsEssent ial (primary) hypertensionGoutHea dacheGeneralized Anxiety Disorder 8 Piyush Mitchell [address], [place], [place], [address] , [place]. [phone] Referring Provider: Elvis Pickett [facility] [place], [place], [id number]. tel:[phone] OFFICE/OUTPA TIENT VISIT, [facility], [address] [place], [id number], [place] [phone] [facility] Physical (chief complaint) HyperlipidemiaType 2 diabetes mellitus without complicationsHeadac heEncounter for general adult medical exam w abnormal findingsEssential (primary) hypertension [address] Piyush Mitchell [address], [address], [place], [place], [address] , [place]. [phone] Referring Provider: Elvis Pickett Olive [facility], [place], [place], [address]. tel:[phone] Family History Family Member Type Diagnosis Age [...] tried to open the door and lost industrial education instructor of the door know and fell backward. Pt did not lose consciousness. Pt called her son who called ambulance and was transferred to [place]. ER and she had negative head CT [...]
--- NOTE | 2024-06-01 16:27 | ED_ITS ---
HPI - Fall General Chief Complaint: Fall Stated Complaint: fall Time Seen by Provider: 06/01/24 14:55 Source: patient and family Mode of arrival: wheelchair Limitations: no limitations History of Present Illness HPI Narrative: 79-year-old with a history of hypertension, diabetes, hyperlipidemia here with the complaints of fall. She of has a son who brought a head to the ER was trying to use the restroom loss of balance and fell hitting her face. No LOC. denies any neck pain or chest pain or hip pain. Has a small skin avulsion on the left elbow complaint: fall Onset (ago): hour(s) (1) Fall from: standing Fall witnessed: yes, by family Place fall occurred: home Loss of consciousness: none Prolonged down time: no Symptoms prior to fall: none Context: other (Lost balance) Location of injury: face Related Data Home Medications ?Medication ?Instructions ?Recorded ?Confirmed ?Last Taken ?Type allopurinol 300 mg tablet 300 mg PO DAILY 03/06/20 11/26/20 Unknown History aspirin 81 mg tablet 81 mg PO DAILY 03/06/20 11/26/20 Unknown History insulin glargine 100 unit/mL (3 40 unit subcut HS 03/06/20 11/26/20 Unknown History mL) subcutaneous pen (Basaglar KwikPen U-100 Insulin) losartan 100 mg tablet 100 mg PO DAILY 03/06/20 11/26/20 Unknown History metformin 1,000 mg tablet 1,000 mg PO BID 03/06/20 11/26/20 Unknown History omeprazole 20 mg capsule,delayed 20 mg PO DAILY 03/06/20 11/26/20 Unknown History release simvastatin 20 mg tablet 20 mg PO DAILY 03/06/20 11/26/20 Unknown History tolterodine 2 mg capsule,extended 2 mg PO DAILY 03/06/20 11/26/20 Unknown History release 24 hr venlafaxine 37.5 mg 37.5 mg PO DAILY 03/06/20 11/26/20 Unknown History capsule,extended release 24 hr furosemide 20 mg tablet 20 mg PO DAILY 07/13/20 11/26/20 Unknown History ibuprofen-diphenhydramine citrate 1 tablet PO HS PRN Sleep 07/13/20 11/26/20 Unknown History 200 mg-38 mg tablet (Advil PM) insulin aspart U-100 100 unit/mL 07/13/20 11/26/20 Unknown History subcutaneous solution (Novolog U-100 Insulin aspart) Allergies Allergy/AdvReac Type Severity Reaction Status Date / Time acetaminophen Allergy Unknown Rash Verified 11/26/20 14:04 Penicillins Allergy Unknown Rash Verified 11/26/20 14:04 Review of Systems Review of Systems: All systems reviewed & are unremarkable except as noted in HPI and below Constitutional: Constitutional: Reports no additional constitutional complaints Eyes: Eyes: Reports no additional eye complaints ENT: Reports system reviewed and no additional complaints, except as documented Cardiovascular: Cardiovascular: Reports no additional cardiovascular complaints Respiratory: Respiratory: Reports no additional respiratory complaints Gastrointestinal: Gastrointestinal: Reports no additional gastrointestinal complaints Musculoskeletal: Musculoskeletal: Reports no additional musculoskeletal complaints PMFSH Past Medical History Medical History Arthritis Diarrhea Constipation High cholesterol Coughing Wears glasses Vision changes Memory loss Dizziness Fracture of humerus, proximal, right, closed GERD (gastroesophageal reflux disease) Gout Hypertension Diabetes mellitus Surgical History Surgical History History of bilateral knee replacement 2003 Family History Family History Father Muscular dystrophy Other Arthritis Diabetes mellitus Hypertension Social History Social History Smoking packs per day: 1 Smoking cigarettes per day: 20.0 Years smoked: 12 Smoking pack-years: 12.00 Smoking end date: 04/18/81 Alcohol intake: never Substance use: never Gender identity (if verbalized by the patient): Female Spiritual care concerns: No Exam Narrative: GENERAL: Well-appearing, well-nourished, and in no acute distress. HEAD: Normocephalic, atraumatic. EYES: PERRLA and EOMI. Left orbital hematoma, has subconjunctival hematoma is able to see . ENT: Nares clear, no rhinorrhea or epistaxis. Mucous membranes moist. NECK: Supple. CHEST: Clear to auscultation. No respiratory distress. HEART: Regular rate and rhythm. No murmur heard. Normal peripheral pulses. ABDOMEN: Soft, nontender, nondistended, normal active bowel sounds. EXTREMITIES: Normal range of motion. No edema. SKIN: Warm, dry, no rash. NEURO: No focal deficits. Alert and oriented x3. PSYCH: Normal mood and affect. Course Course Emergency Course: Notified patient and her son about the CT findings. He does feel comfortable taking her home. Advised fall precautions, continue home medication Vital Signs Vital signs: Vital Signs Temperature 36.4 C 06/01/24 14:30 Pulse Rate 108 H 06/01/24 14:30 Respiratory Rate 16 06/01/24 14:30 Blood Pressure 151/78 H 06/01/24 14:30 Pulse Oximetry 96 06/01/24 14:30 Temperature 36.4 C 06/01/24 14:30 Pulse Rate 108 H 06/01/24 14:30 Respiratory Rate 16 06/01/24 14:30 Blood Pressure 151/78 H 06/01/24 14:30 Pulse Oximetry 96 06/01/24 14:30 Discharge Plan Discharge Clinical Impression: Contusion of face, Subconjunctival hematoma, Nasal bone fracture, Avulsion of skin of elbow Patient Disposition: Home, Self-Care Condition: Stable Instructions: Contusion in Adults (ED), Skin Avulsion (ED) Additional Instructions: continue home medications, fall precautions. Patient Language: Cook Islander Prescriptions: No Action insulin aspart U-100 [Novolog U-100 Insulin aspart] 100 unit/mL solution furosemide 20 mg tablet 20 mg PO DAILY Advil PM 200-38 mg Tablet 1 tablet PO HS PRN (Reason: Sleep) ondansetron 4 mg tablet,disintegrating 4 mg PO Q6H PRN (Reason: nausea and vomiting) Qty: 10 0RF cefuroxime axetil 500 mg tablet 500 mg PO BID 7 Days Qty: 14 0RF simvastatin 20 mg tablet 20 mg PO DAILY metformin 1,000 mg tablet 1,000 mg PO BID omeprazole 20 mg capsule,delayed release(DR/EC) 20 mg PO DAILY allopurinol 300 mg tablet 300 mg PO DAILY losartan 100 mg tablet 100 mg PO DAILY Basaglar RovertoikPen U-100 Insulin 100 unit/mL (3 mL) insulin pen 40 unit SUBCUT HS tolterodine 2 mg Capsule,Extended Release 24hr 2 mg PO DAILY venlafaxine 37.5 mg Capsule,Extended Release 24hr 37.5 mg PO DAILY aspirin 81 mg Tablet 81 mg PO DAILY ondansetron HCl [Zofran] 4 mg tablet 4 mg PO Q8H PRN (Reason: nausea and vomiting) Qty: 10 0RF nitrofurantoin monohyd/m-cryst [Macrobid] 100 mg capsule 100 mg PO Q12H 5 Days Qty: 10 0RF Rx Instructions: must administer with a meal/food cefuroxime axetil 500 mg tablet 500 mg PO BID Qty: 14 0RF Follow-up/Referrals: Maikel,MD Ye [Primary Care Provider] - Time of Disposition: 16:31
[2024-06-01 16:47] VITALS: BP 173/63; PULSE 79; RESP 16; O2SAT 100
== END 2024-06-01 16:48 | disposition home or self-care (01) ==
PROVIDERS: Emergency Provider Family Medicine; PCP Internal Medicine
DX: S02.2XXA Fracture of nasal bones, initial encounter for closed fracture (principal); S05.12XA Contusion of eyeball and orbital tissues, left eye, initial encounter; H11.32 Conjunctival hemorrhage, left eye; S51.002A Unspecified open wound of left elbow, initial encounter; I10 Essential (primary) hypertension; E11.9 Type 2 diabetes mellitus without complications; E78.5 Hyperlipidemia, unspecified; K21.9 Gastro-esophageal reflux disease without esophagitis; M10.9 Gout, unspecified; M19.90 Unspecified osteoarthritis, unspecified site; Z96.653 Presence of artificial knee joint, bilateral; Z87.891 Personal history of nicotine dependence; Z79.82 Long term (current) use of aspirin; Z79.4 Long term (current) use of insulin; Z79.84 Long term (current) use of oral hypoglycemic drugs; W18.39XA Other fall on same level, initial encounter
CPT/HCPCS: 70450; 70486; 72125; 99284